=== PATIENT | male | born 1945 | race Caucasian/White ===

== ENCOUNTER 2019-07-02 13:56 | Outpatient (CLI) | payer MEDICARE, SELFPAY ==
--- NOTE | 2019-07-02 14:06 | XR_ITS ---
WS: [id number] RIGHT HIP HISTORY: HIP PAIN RIGHT COMPARISON: None available. Right hip: No acute fracture or dislocation. Moderate narrowing and degenerative changes at the RIGHT hip joint. Sclerosis and irregularity along the acetabulum with osteophyte formation. Mild cortical irregularity along the femoral head. Atherosclerosis femoral artery is moderate. XR/XR hip RT 2-3V wo/w pel* [id number] IMPRESSION: 1. No hip fracture. 2. Moderate RIGHT hip joint osteoarthritis.
== END 2019-07-02 13:57 | disposition home or self-care (01) ==
LOC: RADWPI 14:03
PROVIDERS: Family Provider Family Medicine; PCP Family Medicine; Referring Provider Family Medicine; Visit Provider Family Medicine
DX: M16.11 Unilateral primary osteoarthritis, right hip (principal); M25.551 Pain in right hip
CPT/HCPCS: 73502

== ENCOUNTER → 2019-08-18 09:47 | Outpatient (BNVA) | payer MEDICARE, SELFPAY | PROVIDERS: Family Provider Family Medicine; PCP Family Medicine; Referring Provider Family Medicine; Visit Provider Specialist | DX: M16.11 Unilateral primary osteoarthritis, right hip (principal) | CPT/HCPCS: 73502 ==

== ENCOUNTER → 2021-05-22 14:32 | Outpatient (BNVA) | payer MEDICARE, SELFPAY | PROVIDERS: Family Provider Family Medicine; PCP Family Medicine; Visit Provider Internal Medicine | DX: E11.40 Type 2 diabetes mellitus with diabetic neuropathy, unspecified (principal); E11.22 Type 2 diabetes mellitus with diabetic chronic kidney disease; N18.30 Chronic kidney disease, stage 3 unspecified; E78.5 Hyperlipidemia, unspecified; Z79.84 Long term (current) use of oral hypoglycemic drugs; Z79.4 Long term (current) use of insulin | CPT/HCPCS: 99204 ==

== ENCOUNTER → 2021-08-30 08:07 | Outpatient (BNVA) | payer MEDICARE, SELFPAY | PROVIDERS: Family Provider Family Medicine; PCP Family Medicine; Visit Provider Internal Medicine | DX: E11.40 Type 2 diabetes mellitus with diabetic neuropathy, unspecified (principal); E11.22 Type 2 diabetes mellitus with diabetic chronic kidney disease; N18.30 Chronic kidney disease, stage 3 unspecified; E78.5 Hyperlipidemia, unspecified; Z79.4 Long term (current) use of insulin; Z79.84 Long term (current) use of oral hypoglycemic drugs | CPT/HCPCS: 99214 ==

== ENCOUNTER 2021-08-30 08:59 | Outpatient (CLI) | payer MEDICARE, SELFPAY | END 2021-08-30 09:00 | disposition home or self-care (01) | LOC: LAB 09:03 | PROVIDERS: PCP Family Medicine; Visit Provider Internal Medicine | DX: E11.9 Type 2 diabetes mellitus without complications (principal) | CPT/HCPCS: 83519; 86337; 86341 ==

== ENCOUNTER 2021-12-28 13:34 | Outpatient (CLI) | payer MEDICARE, SELFPAY ==
--- NOTE | 2021-12-28 13:40 | US_ITS ---
WS: [id number] TESTICULAR ULTRASOUND HISTORY: LEFT testicular swelling for one year. COMPARISON: None available. TECHNIQUE: Real-time and color Doppler imaging or utilized to perform a testicular ultrasound. Right testicle: 4.2 cm x 3.1 cm x 2.4 cm. Normal size and echogenicity. No mass or torsion. Normal color Doppler is present throughout. Systolic and diastolic velocities are both present. Small hydrocele with low-level echoes. Increased soft tissue along the RIGHT inguinal canal. No peris talsis. This is probably a fat-containing inguinal hernia. Right epididymis: Epididymis is mildly enlarged and heterogeneous. Epididymal head measures 1.6 x 1.2 x 1.3 cm. There are a few small adjacent spermatoceles. Left testicle: 4.4 cm x 3.1 cm x 2.9 cm. Normal size and echogenicity. No mass or torsion. Normal color Doppler is present throughout. Systolic and diastolic velocities are both present. Moderate size hydrocele with low-level echoes. Left epididymis: Multiple small spermatoceles within the epididymis. The largest spermatocele measure s 7 x 6 mm. US/US scrotum [id number] IMPRESSION: 1. Bilateral hydroceles, LEFT greater than RIGHT. 2. Several small LEFT epididymal spermatoceles. 3. No testicular mass or torsion.
== END 2021-12-28 13:35 | disposition home or self-care (01) ==
LOC: RAD 13:34
PROVIDERS: PCP Family Medicine; Visit Provider Family Medicine
DX: N50.89 Other specified disorders of the male genital organs (principal); N43.3 Hydrocele, unspecified; N43.42 Spermatocele of epididymis, multiple
CPT/HCPCS: 76870

== ENCOUNTER → 2022-01-01 11:41 | Outpatient (BNVA) | payer MEDICARE, SELFPAY | PROVIDERS: PCP Family Medicine; Visit Provider Family Medicine | DX: E13.22 Other specified diabetes mellitus with diabetic chronic kidney disease (principal); E78.5 Hyperlipidemia, unspecified; Z79.01 Long term (current) use of anticoagulants | CPT/HCPCS: 80053; 80061; 83036; 85610 ==

== ENCOUNTER 2022-01-08 15:20 | Observation (INO) | payer MEDICARE, MEDICAID, SELFPAY ==
[2022-01-08 16:15] VITALS: BP 144/69; PULSE 36; RESP 18; TEMP 36.6; O2SAT 97; BMI 33.9
--- NOTE | 2022-01-08 16:19 | ECG_ITS ---
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 Measurements Intervals [place] Rate: 46 P: [place]: QRS: 42 QRSD: 98 T: 109 QT: 458 QTc: 401 Interpretive Statements ATRIAL FIBRILLATION WITH SLOW VENTRICULAR RESPONSE MODERATE ST DEPRESSION [0.05+ mV ST DEPRESSION] ABNORMAL QRS-T ANGLE [QRS-T AXIS DIFFERENCE > 60] No previous ECG available for comparison Electronically Signed On 01-08-2022 20:57:30 CDT by Shonda Camacho M.D. [email or web address] memorial [email or web address] [facility].[place]/store/[id number]
--- NOTE | 2022-01-08 16:44 | XRR_ITS ---
PROCEDURE INFORMATION: Exam: XR Chest Exam date and time: 01/08/2022 4:55 PM Age: 76 years old Clinical indication: Cough and dyspnea; Additional info: Dyspnea/cough TECHNIQUE: Imaging protocol: Radiologic exam of the chest. Views: 1 view. COMPARISON: No relevant prior studies available. FINDINGS: Lungs: Visualized portions of the lungs are clear. Pleural spaces: Unremarkable. No pleural effusion. No pneumothorax. Heart/Mediastinum: Heart is within normal limits of size. Vasculature: Atherosclerotic calcification is seen in the aortic arch. Bones/joints: There are degenerative changes in the thoracic spine and left shoulder. XR/XR chest 1V portable [id number] IMPRESSION: No acute infiltrate.
--- NOTE | 2022-01-08 16:45 | ECG_ITS ---
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 Measurements Intervals [place] Rate: 39 P: [place]: QRS: 41 QRSD: 94 T: 80 QT: 447 QTc: 362 Interpretive Statements ATRIAL FIBRILLATION WITH SLOW VENTRICULAR RESPONSE MODERATE ST DEPRESSION [0.05+ mV ST DEPRESSION] CRITICAL TEST RESULT Compared to ECG 01/08/2022 16:23:16 No significant changes Electronically Signed On 01-08-2022 20:57:42 CDT by Shonda Camacho M.D. [id number]
--- NOTE | 2022-01-08 17:08 | W.ED.GENADLT ---
HPI - General Adult General: Chief complaint: General Medical Stated complaint: low HR Time Seen by Provider: 01/08/22 16:44 Source: patient Mode of arrival: ambulatory Limitations: no limitations History of Present Illness: 76-year-old male presents to the emergency room with complaints of low heart rate. Patient denies any chest pain he does have a history of atrial fibrillation he is on atenolol which she has been taking regularly and on the 12th of this month increase to twice daily from daily. He has noticed increasing shortness of breath with activity since telemetry was increased. Onset (ago): hour(s) Severity: moderate Relieving factors: rest Exacerbating factors: none Associated symptoms: Reports weakness; Deny chest pain, confusion, cough, diaphoresis, decreased appetite, dyspnea, fevers/chills, headache(s), malaise, nausea, rash, palpitations, seizures, short of breath, syncope or vomiting Treatments prior to arrival: none Review of Systems Const: Denies: fever(s), chills, fatigue, malaise or diaphoresis ENMT: Denies: throat pain, ear or mastoid pain, nasal discharge or nasal congestion Card: Denies: chest pain, palpitations or syncope Resp: Denies: dyspnea GI: Denies: abdominal pain, nausea or vomiting : Denies: flank pain, difficulty urinating, dysuria, urinary frequency or urinary urgency Skin/Breast: Denies: rash Neuro: Denies: headache(s) or confusion PFS ED PFSH: Medical History Acute biliary pancreatitis H/O blood clots Hypertension Pseudocyst of pancreas Type 2 diabetes mellitus Surgical History History of cholecystectomy Family History Father Cancer Mother Pneumonia Sister Aneurysm Brother AA (aortic aneurysm) Social History Smoking and tobacco status: never smoked Alcohol intake: never Physical Exam Const: GENERAL APPEARANCE: cooperative and comfortable ORIENTATION/CONSCIOUSNESS: Yes awake, Yes oriented to person, Yes oriented to place and Yes oriented to time HENMT: COMMON NORMALS: normocephalic, atraumatic and hearing grossly normal bilaterally HEAD & SCALP: normocephalic and atraumatic Neck/C-Spine: COMMON NORMALS: no JVD Resp: COMMON NORMALS: normal respiratory effort, No retractions, No use of accessory muscles and clear to auscultation bilaterally AUSCULTATION: clear to auscultation bilaterally Cardio: COMMON NORMALS: no JVD and No murmurs present (Cardio) RATE: bradycardic RHYTHM: abnormal rhythm irregularly irregular GI: COMMON NORMALS: Soft to palpation and No hepatosplenomegaly present AUSCULTATION: Yes normoactive bowel sounds PALPATION: Yes Soft to palpation, No Tenderness to palpation present (GI), No Guarding due to palpation present (GI) and Yes No hepatosplenomegaly present Extremity: COMMON NORMALS: normal to inspection, capillary refill normal, no clubbing, cyanosis or edema, no calf tenderness and no pedal edema Neuro: SENSORIUM/ORIENTATION: Yes oriented to person, Yes oriented to place and Yes oriented to time Skin: COMMON NORMALS: no rashes or lesions noted GENERAL SKIN EXAM: no rashes or lesions noted Course Vital Signs: Vital signs: Vital Signs Temperature 98 F 01/09/22 11:13 Pulse Rate 55 L 01/09/22 11:13 Respiratory Rate 22 H 01/09/22 11:13 Blood Pressure 141/67 01/09/22 11:13 Pulse Oximetry 95 01/09/22 11:13 [facility] - General Adult Medical Decision Making Significant bradycardia will admit discussed with hospitalist orders written. Medical Records I reviewed the patient's medical records. Lab Data I reviewed the patient's lab results. : 01/09/22 04:13 01/09/22 04:13 Radiology Impressions Chest X-Ray 01/08/22 16:44 IMPRESSION: No acute infiltrate. Laboratory Results WBC 10.4 10^3/uL (4.0-10.0) H 01/08/22 17:05 RBC 5.66 10^6/uL (4.1-5.3) H 01/08/22 17:05 Hgb 15.0 g/dL (11.7-16.6) 01/08/22 17:05 Hct 47.9 % (42.0-52.0) 01/08/22 17:05 MCV 84.6 fl (80-94) 01/08/22 17:05 MCH 26.5 pg (28.0-34.0) L 01/08/22 17:05 MCHC 31.3 g/dL (30.0-36.0) 01/08/22 17:05 RDW 18.0 % (12.1-15.1) H 01/08/22 17:05 Plt Count 180 10^3/cmm (130-400) 01/08/22 17:05 MPV 12.5 fL (7.4-10.4) H 01/08/22 17:05 Neut % (Auto) 50.8 % 01/08/22 17:05 Lymph % (Auto) 41.0 % 01/08/22 17:05 [place] % (Auto) 6.9 % 01/08/22 17:05 Eos % (Auto) 0.5 % 01/08/22 17:05 Baso % (Auto) 0.4 % 01/08/22 17:05 Neut # (Auto) 5.27 10^3/uL (1.8-7.7) 01/08/22 17:05 Lymph # (Auto) 4.3 10^3/uL (0.8-4.8) 01/08/22 17:05 [place] # (Auto) 0.7 10^3/uL (0.2-0.9) 01/08/22 17:05 Eos # (Auto) 0.1 10^3/uL (0.0-0.8) 01/08/22 17:05 Baso # (Auto) 0.0 10^3/uL (0.0-0.1) 01/08/22 17:05 Nucleated RBC % (auto) 0 % 01/08/22 17:05 Nucleated RBCs # 0.0 /100WBC 01/08/22 17:05 Sodium 139 mmol/L (136-145) 01/08/22 17:29 Potassium 4.6 mmol/L (3.5-5.1) 01/08/22 17:29 Chloride 105 mmol/L (98-107) 01/08/22 17:29 Carbon Dioxide 22 mmol/L (22-29) 01/08/22 17:29 Anion Gap 16.6 (5-19) 01/08/22 17:29 BUN 27 mg/dL (8-23) H 01/08/22 17:29 Creatinine 1.4 mg/dL (0.7-1.2) H 01/08/22 17:29 GFR Calculation Not Reportable 01/08/22 17:29 Glucose 86 mg/dL (65-115) 01/08/22 17:29 Calculated Osmolality 292 mOsm/kg (285-295) 01/08/22 17:29 Calcium 9.1 mg/dL (8.5-10.5) 01/08/22 17:29 Total Bilirubin 1.1 mg/dL (0.15-1.2) 01/08/22 17:29 AST 11 U/L (0-40) 01/08/22 17:29 ALT 19 U/L (0-41) 01/08/22 17:29 Alkaline Phosphatase 99 IU/L (40-130) 01/08/22 17:29 Troponin T Baseline 22 ng/L (0-15) H 01/08/22 17:29 Total Protein 6.6 g/dL (6.6-8.7) 01/08/22 17:29 Albumin 4.0 g/dL (3.5-5.2) 01/08/22 17:29 Globulin 2.6 g/dL (1.3-4.6) 01/08/22 17:29 TSH 2.12 uIU/mL (0.27-4.20) 01/08/22 17:29 Discharge Plan Discharge Patient Disposition: Admitted As Inpatient Admit Provider: Hoda Angulo Clinical Impression: Atrial fibrillation with slow ventricular response, Type 2 diabetes mellitus, Chronic kidney disease Condition: Stable Discharge Diet: Cardiac Discharge Activity: Increase activity as tolerated Coding Level of Care Code ED Open Winder for Chg Fwd Exam Comprehensive
[2022-01-08 17:20] VITALS: BP 141/98; PULSE 49; RESP 16; O2SAT 95
[2022-01-08 17:20] LABS: Basophils % 0.4 %; Eosinophils # 0.1 10^3/uL (0.0-0.8); Eosinophils % 0.5 %; Hematocrit 47.9 % (42.0-52.0); Lymphocytes # 4.3 10^3/uL (0.8-4.8); Mean Corpuscular HGB Conc 31.3 g/dL (30.0-36.0); Mean Corpuscular Hemoglobin 26.5 pg (28.0-34.0); Mean Corpuscular Volume 84.6 fl (80-94); Mean Platelet Volume 12.5 fL (7.4-10.4); Monocytes # 0.7 10^3/uL (0.2-0.9); Monocytes % 6.9 %; Neutrophils # 5.27 10^3/uL (1.8-7.7); Neutrophils % 50.8 %; Nucleated Red Blood Cells % 0 %; Platelet Count 180 10^3/cmm (130-400); Red Blood Count 5.66 10^6/uL (4.1-5.3); White Blood Count 10.4 10^3/uL (4.0-10.0)
--- NOTE | 2022-01-08 18:05 | P.HP_ITS ---
Providers/Chief Complaint Primary Care Provider: Alfredito Chandra DO Chief Complaint: low HR History of Present Illness Veronique Cavazos is a 76 year old male who has history of pancreatitis, diabetes, hypertension, presented to hospital with chief complaint of dizziness, shortness of breath and fatigue. Patient is vaccinated for COVID-19. Patient is stating that he was in his usual state of health until 48 hours ago, 48 hours ago he started experiencing dizziness she describing as lightheadedness, he did not use any chest pain, fever, diarrhea. No recent viral infection. He has been having headaches on and off. No previous diagnosis of A. fib. He takes Coumadin for his DVT. Recently Dr. Anthony increase his atenolol dose to twice a day he has been taking Tylenol twice a day for last 7 days. Because of his symptoms he dec ided to come to the hospital for further evaluation. He never experienced confusion however endorsing fatigue and lethargy. Diagnostic work-up in the ER revealed sinus pauses, A. fib with slow ventricular response his heart rate fluctuated between 45-60, his blood pressure is 154/80 mmHg, at baseline systolic blood pressure remains in 150s and diastolic runs around 60s millimeters mercury. He has never experienced bradycardia before. No recent falls. He lives alone and consider himself fairly active for his age. No recent tick bites. Troponin 22, TSH is unremarkable, Chronic kidney disease at baseline Review of Systems Const: Reports: chills and body aches Eyes: Denies: change in vision ENMT: Denies: throat pain Card: Reports: dyspnea on exertion Resp: Reports: dyspnea GI: Denies: abdominal pain : Denies: flank pain Musc: Denies: neck pain Skin/Breast: Denies: rash Neuro: Denies: headache(s) Psych: Denies: anxiety Endo: Denies: polyuria [place]/Lymph: Denies: easy bruising All/Imm: Denies: urticaria Medications/Allergies Home Medications Medication Instructions Recorded Confirmed Last Taken Type amlodipine 10 mg tablet 10 mg PO DAILY 08/18/19 01/08/22 Unknown History atenolol 50 mg tablet 50 mg PO BID 08/18/19 01/08/22 01/08/22 History finasteride 5 mg tablet 5 mg PO DAILY 08/18/19 01/08/22 01/08/22 History losartan 100 mg tablet 100 mg PO DAILY 08/18/19 01/08/22 01/08/22 History warfarin 4 mg tablet See Rx Instructions .ROUTE .COMPLEX 08/18/19 01/08/22 01/08/22 History atorvastatin 20 mg tablet 20 mg PO BEDTIME 05/22/21 01/08/22 01/07/22 History cholecalciferol (vitamin D3) 25 25 mcg PO DAILY 05/22/21 01/08/22 01/08/22 History mcg (1,000 unit) capsule metformin 1,000 mg tablet 500 mg PO BID tab 05/22/21 01/08/22 01/08/22 History pen needle, diabetic 32 gauge x #100 ea 05/22/21 01/08/22 Unknown Rx (BD Samara 2nd Gen Pen Needle) vitamin B12 500 mcg-folic acid 400 1 tab PO DAILY 05/22/21 01/08/22 01/08/22 History mcg tablet blood-glucose meter,continuous #1 ea 08/30/21 01/08/22 Unknown Rx (Dexcom G6 Inside Sales Person) blood-glucose sensor (Dexcom G6 #3 ea 08/30/21 01/08/22 Unknown Rx Sensor) blood-glucose transmitter (Dexcom #1 ea 08/30/21 01/08/22 Unknown Rx G6 Transmitter) clonidine HCl 0.1 mg tablet 0.05 mg PO BID 01/08/22 01/08/22 Unknown History hydrocodone 10 mg-acetaminophen 1 tab PO TID PRN 01/08/22 01/08/22 Unknown History 325 mg tablet insulin human U-100 NPH-regulr 40 unit SUBCUT BID 01/08/22 01/08/22 01/08/22 History 70-30 mix 100 unit/mL subcutaneous susp (Novolin 70/30 U-100 Insulin) pregabalin 75 mg capsule 75 mg PO BID 01/08/22 01/08/22 01/08/22 History sertraline 100 mg tablet 100 mg PO DAILY 01/08/22 01/08/22 01/08/22 History sildenafil 25 mg tablet 25 mg PO DAILY PRN 01/08/22 01/08/22 Unknown History Allergies Allergy/AdvReac Type Severity Reaction Status Date / Time No Known Allergies Allergy Verified 01/08/22 17:30 PFSH Acute PFSH: Medical History Acute biliary pancreatitis H/O blood clots Hypertension Pseudocyst of pancreas Type 2 diabetes mellitus Surgical History History of cholecystectomy Family History Father Cancer Mother Pneumonia Sister Aneurysm Brother AA (aortic aneurysm) Social History Smoking and tobacco status: never smoked Alcohol intake: never Vitals/I&O/Wt Last Vital Signs Temp 97.9 F 01/08/22 16:15 Pulse 49 L 01/08/22 17:20 Resp 16 01/08/22 17:20 BP 141/98 01/08/22 17:20 Pulse Ox 95 01/08/22 17:20 Weight last 48 hrs Weight 95.254 kg Physical Exam Narrative: Very pleasant cooperative elderly male Currently heart rate is in 55-60 range Blood pressure 154/80 mmHg Patient is awake and alert No signs of confusion Family at the bedside Patient does not look fluid overloaded S1, S2 is variable Am not able appreciate any murmur Abdomen distended, soft, nontender, bowel sound present No extremity without edema No signs of hypothyroidism No signs of confusion He is awake and alert Nonfocal neuro exam Data : 01/08/22 17:05 01/08/22 17:29 A&P Assessment and plan (1) Type 2 diabetes mellitus: Status: Acute (2) HLD (hyperlipidemia): Status: Acute (3) Atrial fibrillation with slow ventricular response: Status: Acute (4) Chronic kidney disease: Status: Acute Plan Slow ventricular response with A. fib New onset Patient is symptomatic with presyncope, lightheadedness Shortness of breath Recently his atenolol dose was increased to twice a day which I would hold for now Monitor with telemetry on CSU Trend troponin and EKG We will keep him n.p.o. after midnight in case he would require surgical intervention in the morning such as pacemaker Will consult cardiology in the morning Check echo His TSH is normal, potassium is 4.6 Check magnesium level No recent tick bites No previous history of amyloidosis or lupus N.p.o. after midnight DVT prophylaxis on hold in case he would require any surgical intervention He is full code I have allowed his family to stay with him overnight Attestations Medical Necessity Statement*: Patient is being monitored for A. 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
[2022-01-08 18:08] LABS: Troponin(5th) Baseline 22 ng/L (0-15)
[2022-01-08 18:24] LABS: Alanine Aminotransferase 19 U/L (0-41); Alkaline Phosphatase 99 IU/L (40-130); Anion Gap 16.6 (5-19); Aspartate Amino Transferase 11 U/L (0-40); Blood Urea Nitrogen 27 mg/dL (8-23); Calcium 9.1 mg/dL (8.5-10.5); Carbon Dioxide 22 mmol/L (22-29); Chloride 105 mmol/L (98-107); Globulin 2.6 g/dL (1.3-4.6); Glucose 86 mg/dL (65-115); Osmolality Calculated 292 mOsm/kg (285-295); Potassium 4.6 mmol/L (3.5-5.1); Sodium 139 mmol/L (136-145); Thyroid Stimulating Hormone 2.12 uIU/mL (0.27-4.20); Total Bilirubin 1.1 mg/dL (0.15-1.2); Total Protein 6.6 g/dL (6.6-8.7)
[2022-01-08 18:29] LABS: Creatinine Clr Calc Pharmacy 46.9807
--- NOTE | 2022-01-08 18:45 | ECG_ITS ---
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 Measurements Intervals [place] Rate: 44 P: [place]: QRS: 38 QRSD: 87 T: 76 QT: 429 QTc: 368 Interpretive Statements ATRIAL FIBRILLATION WITH SLOW VENTRICULAR RESPONSE NONSPECIFIC ST & T-WAVE ABNORMALITY ABNORMAL RHYTHM ECG Compared to ECG 01/08/2022 17:08:31 T-wave abnormality now present ST (T wave) deviation no longer present Electronically Signed On 01-08-2022 21:07:53 CDT by Shonda Camacho M.D. [id number]
--- NOTE | 2022-01-08 19:09 | USCV_ITS ---
Veronique Cavazos Age: 76 Gender: M : 1945 Exam Date: 01/08/2022 19:26 Ordering Phys: Hoda Angulo MD Technologist: OPAL Exam Location[place] [facility] [place] Indication: atrial fibrillation, dizziness, no shortness of breath, No hx cardiac intervention per patient. BP: 141 / 98 HR: 57 Rhythm: Atrial fibrillation Technical Quality: Adequate MEASUREMENTS (Male / Female) Normal Values 2D ECHO LV Diastolic Diameter PLAX 4.6 cm 4.2 - 5.9 / 3.9 - 5.3 cm LV Systolic Diameter PLAX 3.1 cm IVS Diastolic Thickness 1.7 cm 0.6 - 1.0 / 0.6 - 0.9 cm IVS Systolic Thickness 2.0 cm LVPW Diastolic Thickness 1.3 cm 0.6 - 1.0 / 0.6 - 0.9 cm LVPW Systolic Thickness 1.9 cm LVOT Diameter 2.0 cm LV Ejection Fraction 2D Teich 62.3 % LV Ejection Fraction MOD 2C 54.9 % LV Ejection Fraction 2C AL 57.7 % LA Diameter 4.3 cm LA Width 3.7 cm LA Height 6.1 cm RA Width 2.7 cm RA Height 4.6 cm Aorta at Sinotubular Diameter 3.7 cm IVC Diameter 1.5 cm M-MODE Aortic Annulus Diameter 4.2 cm LA Ao Ratio MM 1.0 MV E Point Septal Separation 0.6 cm DOPPLER AV Peak Velocity 254.0 cm/s LVOT Peak Velocity 78.0 cm/s AV Area Cont Eq vti 1.0 cm squared AV Area Cont Eq pk 1.0 cm squared MV Peak Velocity 119.0 cm/s MV Area PHT 5.0 cm squared Mitral E to A Ratio 2.5 MV E' Velocity 65.8 cm/s Mitral E to MV E' Ratio 11.7 Mitral E to LV E' Lateral Ratio 10.1 Mitral E to LV E' Septal Ratio 13.9 TR Peak Velocity 217.7 cm/s TR Peak Gradient 19.0 mmHg TV Peak E Velocity 57.0 cm/s Right Atrial Pressure 10.0 mmHg Pulmonary Artery Systolic Pressu 29.0 mmHg PV Peak Velocity 76.0 cm/s RV Acceleration Time 0.1 s RV Ejection Time 0.5 s RV AcT/ET 0.2 FINDINGS Left Ventricle Normal left ventricular size. LV systolic function is normal with EF of 55-60%. No regional wall motion abnormalities. Diastolic function is indeterminate because of atrial fibrillation Right Ventricle The right ventricle is normal in size and function. Right Atrium The right atrium is normal in size. Left Atrium The left atrium is dilated Mitral Valve Structurally normal mitral valve without significant stenosis or prolapse. There is mild mitral regurgitation. Aortic Valve Aortic valve is thickened. Moderate aortic stenosis is seen with aortic valve area of 1.1 cm squared and mean gradient across aortic valve 12.4 mmHg. There is mild aortic regurgitation. Tricuspid Valve Structurally normal tricuspid valve without significant stenosis. Trace tricuspid regurgitation. Pulmonary artery systolic pressure is normal. Pulmonic Valve Not well visualized. Pericardium Normal pericardium without effusion. Aorta Normal ascending aorta dimension. IVC CONCLUSIONS LV systolic function is normal with EF 55 to 60%. Diastolic function is indeterminate because of atrial fibrillation. Left atrium is dilated. Mild mitral regurgitation. Aortic valve is thickened and calcified. Moderate aortic stenosis is seen with aortic valve area of 1.1 cm squared and mean gradient across aortic valve 12.4 mmHg. Mild aortic regurgitation. Trace tricuspid regurgitation. Compared to prior echocardiogram from 2019, aortic stenosis has now progressed to moderate . Elías Gutierrez MD (Electronically Signed) Final Date: 09 January 2022 11:39 S
--- NOTE | 2022-01-08 19:25 | PC.NURSE ---
received report. 76 yo male presents with bradycardia. He states his PCP increased his atenolol recently and noticed yesterday that his heart rate started being slow, below 50. Today his rate has been from 39-60. he states he feels weak and has some dizziness. He denies CP. He is admitted. Cardiology to see in the a.m. He is NPO at midnight. A/O x 4, even non labored respirations. No chest pain. abdomen soft non tender. distal pulses 2+.
[2022-01-08 19:31] VITALS: BP 159/78; PULSE 55; RESP 21; O2SAT 93
[2022-01-08 22:49] VITALS: BP 143/60; PULSE 40; RESP 20; O2SAT 93
[2022-01-09] VITALS (30 sets, daily range): BP systolic 123–168; BP diastolic 56–97; PULSE 44–73; RESP 8–25; TEMP 36.3–37.2; O2SAT 88–95; BMI 33.9
[2022-01-09 00:23] LABS: Troponin 5 6HR 18.98 ng/L (0-15)
[2022-01-09 00:27] LABS: Troponin 5 6HR Delta -3.02 ng/L (0-12)
[2022-01-09] MEDS: atorvastatin 40 mg Tablet 20 MG PO ×2 (01:34→20:31)
[2022-01-09 04:41] LABS: Basophils % 0.4 %; Eosinophils # 0.1 10^3/uL (0.0-0.8); Eosinophils % 0.9 %; Hematocrit 46.1 % (42.0-52.0); Hemoglobin 14.3 g/dL (11.7-16.6); Lymphocytes # 4.1 10^3/uL (0.8-4.8); Lymphocytes % 45.2 %; Mean Corpuscular Hemoglobin 26.4 pg (28.0-34.0); Mean Corpuscular Volume 85.2 fl (80-94); Mean Platelet Volume 12.4 fL (7.4-10.4); Monocytes # 0.5 10^3/uL (0.2-0.9); Monocytes % 5.9 %; Neutrophils # 4.25 10^3/uL (1.8-7.7); Neutrophils % 47.4 %; Nucleated Red Blood Cells % 0 %; Platelet Count 152 10^3/cmm (130-400); Red Blood Count 5.41 10^6/uL (4.1-5.3); Red Cell Distribution Width 14.9 % (12.1-15.1)
[2022-01-09 04:51] LABS: INR 1.95 (0.8-1.2)
[2022-01-09 05:00] LABS: Anion Gap 14.5 (5-19); Blood Urea Nitrogen 27 mg/dL (8-23); Calcium 8.9 mg/dL (8.5-10.5); Carbon Dioxide 24 mmol/L (22-29); Chloride 106 mmol/L (98-107); Glucose 156 mg/dL (65-115); Osmolality Calculated 298 mOsm/kg (285-295); Potassium 4.5 mmol/L (3.5-5.1); Sodium 140 mmol/L (136-145)
[2022-01-09 06:32] LABS: Glucose Point of Care 125 mg/dL (70-110)
--- NOTE | 2022-01-09 06:40 | P.DS_ITS ---
Discharge Providers Date of Admission: 01/08/22 18:04 Date of Discharge: January 09, 2022 Attending Provider at Admission: Hoda Angulo MD Attending Provider at Discharge: Hoda Angulo MD Primary Care Provider: Alfredito Chandra DO Diagnoses at Discharge Discharge Diagnosis (1) Type 2 diabetes mellitus: Status: Acute (2) HLD (hyperlipidemia): Status: Acute (3) Atrial fibrillation with slow ventricular response: Status: Acute (4) Chronic kidney disease: Status: Acute Reason for Visit Reason for Visit: low HR Hospital Course Hospital Course Pleasant 76-year-old male who was admitted for management evaluation of presyncope, shortness of breath. In the ER he was diagnosed with A. fib slow ventricular response, recently his atenolol dose was increased to 50 mg twice a day by his PCP. No active chest pain, troponin is trending down. TSH normal. No electrolyte imbalance. Patient was hemodynamically stable. In fact he janine ined hypertensive throughout his hospitalization. He does carry history of chronic kidney disease. Cardiology was consulted who recommended discharge on event monitor. No indication for pacemaker at this point his bradycardia is associated with use of AV boy blocking agents. He will follow-up with cardiology within 2 weeks. Physical Exam 2 Narrative: Pleasant cooperative EOMI, PERRLA Nonfocal neuro exam Variable S1-S2 Abdomen soft Distended abdomen nontender No signs of edema He is awake and alert and pleasant Discharge Data Studies Completed and Pending Completed Studies During Hospitalization Category Date Time Status XR chest 1V portable [id number] Stat Exams 01/08/22 16:44 Completed Pending at discharge Category Date Time Status CV. echo complete* [id number] Stat Ultrasound 01/08/22 19:09 Taken Radiology Impressions Chest X-Ray 01/08/22 16:44 IMPRESSION: No acute infiltrate. Laboratory Results WBC 9.0 10^3/uL (4.0-10.0) 01/09/22 04:13 RBC 5.41 10^6/uL (4.1-5.3) H 01/09/22 04:13 Hgb 14.3 g/dL (11.7-16.6) 01/09/22 04:13 Hct 46.1 % (42.0-52.0) 01/09/22 04:13 MCV 85.2 fl (80-94) 01/09/22 04:13 MCH 26.4 pg (28.0-34.0) L 01/09/22 04:13 MCHC 31.0 g/dL (30.0-36.0) 01/09/22 04:13 RDW 14.9 % (12.1-15.1) 01/09/22 04:13 Plt Count 152 10^3/cmm (130-400) 01/09/22 04:13 MPV 12.4 fL (7.4-10.4) H 01/09/22 04:13 Neut % (Auto) 47.4 % 01/09/22 04:13 Lymph % (Auto) 45.2 % 01/09/22 04:13 [place] % (Auto) 5.9 % 01/09/22 04:13 Eos % (Auto) 0.9 % 01/09/22 04:13 Baso % (Auto) 0.4 % 01/09/22 04:13 Neut # (Auto) 4.25 10^3/uL (1.8-7.7) 01/09/22 04:13 Lymph # (Auto) 4.1 10^3/uL (0.8-4.8) 01/09/22 04:13 [place] # (Auto) 0.5 10^3/uL (0.2-0.9) 01/09/22 04:13 Eos # (Auto) 0.1 10^3/uL (0.0-0.8) 01/09/22 04:13 Baso # (Auto) 0.0 10^3/uL (0.0-0.1) 01/09/22 04:13 Nucleated RBC % (auto) 0 % 01/09/22 04:13 Nucleated RBCs # 0.0 /100WBC 01/09/22 04:13 PT 22.50 SECONDS (12.1-14.9) H 01/09/22 04:13 INR 1.95 (0.8-1.2) H 01/09/22 04:13 Sodium 140 mmol/L (136-145) 01/09/22 04:13 Potassium 4.5 mmol/L (3.5-5.1) 01/09/22 04:13 Chloride 106 mmol/L (98-107) 01/09/22 04:13 Carbon Dioxide 24 mmol/L (22-29) 01/09/22 04:13 Anion Gap 14.5 (5-19) 01/09/22 04:13 BUN 27 mg/dL (8-23) H 01/09/22 04:13 Creatinine 1.3 mg/dL (0.7-1.2) H 01/09/22 04:13 GFR Calculation Not Reportable 01/09/22 04:13 Glucose 156 mg/dL (65-115) H 01/09/22 04:13 POC Glucose 125 mg/dL (70-110) H 01/09/22 06:06 Calculated Osmolality 298 mOsm/kg (285-295) H 01/09/22 04:13 Calcium 8.9 mg/dL (8.5-10.5) 01/09/22 04:13 Total Bilirubin 1.1 mg/dL (0.15-1.2) 01/08/22 17:29 AST 11 U/L (0-40) 01/08/22 17:29 ALT 19 U/L (0-41) 01/08/22 17:29 Alkaline Phosphatase 99 IU/L (40-130) 01/08/22 17:29 Troponin T Baseline 22 ng/L (0-15) H 01/08/22 17:29 Troponin T 120 Minute 19.30 ng/L (0-15) H 01/08/22 19:20 Delta Troponin T -2.70 ABS# (0-10) L 01/08/22 19:20 Troponin T Hi Sens 6Hr 18.98 ng/L (0-15) H 01/08/22 23:55 Troponin T Hi Sens 6Hr Delta -3.02 ng/L (0-12) L 01/08/22 23:55 Total Protein 6.6 g/dL (6.6-8.7) 01/08/22 17:29 Albumin 4.0 g/dL (3.5-5.2) 01/08/22 17:29 Globulin 2.6 g/dL (1.3-4.6) 01/08/22 17:29 TSH 2.12 uIU/mL (0.27-4.20) 01/08/22 17:29 Vitals Last Vital Signs Temp 97.8 F 01/09/22 04:00 Pulse 67 01/09/22 05:33 Resp 17 01/09/22 04:00 BP 158/80 01/09/22 04:00 Pulse Ox 95 01/09/22 04:00 Discharge Plan Discharge Patient Disposition: Home Condition: Stable Prescriptions: No Action atorvastatin 20 mg tablet 20 mg PO BEDTIME 0RF vitamin B39-dahrw acid 500-400 mcg tablet 1 tab PO DAILY 0RF Rx Instructions: administer with a meal cholecalciferol (vitamin D3) 25 mcg (1,000 unit) capsule 25 mcg PO DAILY 0RF (DME) pen needle, diabetic [BD Samara 2nd Gen Pen Needle] 32 gauge x 5/32 needle See Rx Instructions .Route Qty: 100 3RF Rx Instructions: As directed (DME) Dexcom G6 Assistant Tennis Coach Misc See Rx Instructions .Route Qty: 1 0RF Rx Instructions: Check BS 4 -6 times a day. (DME) Dexcom G6 Sensor Device See Rx Instructions .Route Qty: 3 3RF Rx Instructions: Change every 10 days. (DME) Dexcom G6 Transmitter Device See Rx Instructions .Route Qty: 1 3RF Rx Instructions: Change every 90 days. warfarin 4 mg tablet See Rx Instructions .ROUTE .COMPLEX 0RF Rx Instructions: 4 mg orally ON [id number] AND HALF A TAB ON FRI-FRI-FRI amlodipine 10 mg tablet 10 mg PO DAILY 0RF losartan 100 mg tablet 100 mg PO DAILY 0RF atenolol 50 mg tablet 50 mg PO BID 0RF finasteride 5 mg tablet 5 mg PO DAILY 0RF metformin 1,000 mg tablet 500 mg PO BID 0RF clonidine HCl 0.1 mg Tablet 0.05 mg PO BID 0RF sertraline 100 mg Tablet 100 mg PO DAILY 0RF pregabalin 75 mg Capsule 75 mg PO BID 0RF Novolin 70/30 U-100 Insulin 100 unit/mL (70-30) Suspension 40 unit SUBCUT BID 0RF hydrocodone-acetaminophen 10-325 mg tablet 1 tab PO TID PRN (Reason: Pain) 0RF sildenafil 25 mg Tablet 25 mg PO DAILY PRN (Reason: Erectile Dysfunction) 0RF Rx Instructions: administer 30 minutes to 4 hours before activity Referrals: Alfredito Chandra DO [Primary Care Provider] - Patient Instructions: Opioid Safety Coding Level of Care Code Acute Chg FW DC note Diagnoses Type 2 diabetes mellitus E11.9 HLD (hyperlipidemia) E78.5 Atrial fibrillation with slow ventricular response I48.91 Chronic kidney disease N18.9
[2022-01-09] MEDS: finasteride 5 mg Tablet PO (08:37)
[2022-01-09] MEDS: losartan 50 mg Tablet 25 MG PO (08:37)
[2022-01-09] MEDS: amlodipine 10 mg Tablet PO (08:38)
--- NOTE | 2022-01-09 09:07 | P.CONIM_ITS ---
Providers/Reason For Consult Consulting Physician/Specialty*: Elías Gutierrez MD/ Cardiology Reason for Consult*: Symtpomatic bradycardia Attending Physician: Hoda Angulo MD Primary Care Provider: Alfredito Chandra DO History of Present Illness History of Present Illness Veronique Cavazos is a 76 year old male with past medical history of diabetes, hypertension who presented to the hospital with complaints of dizziness and shortness of breath. He was also fatigued. Patient does not have a prior history of for atrial fibrillation. He was on anticoagulation with Coumadin for DVT history. His atenolol dose was recently increased by PCP office. In the hospital he was found to be in atrial fibrillation with slow heart rate. With the bradycardia he did feel dizzy. EKG does not show significant ST changes. No significant troponin elevation. Echocardiogram shows normal LV systolic function and moderate aortic stenosis. Review of Systems Const: Reports: chills and body aches Eyes: Denies: change in vision ENMT: Denies: throat pain Card: Reports: dyspnea on exertion Resp: Reports: dyspnea GI: Denies: abdominal pain : Denies: flank pain Musc: Denies: neck pain Skin/Breast: Denies: rash Neuro: Denies: headache(s) Psych: Denies: anxiety Endo: Denies: polyuria [place]/Lymph: Denies: easy bruising All/Imm: Denies: urticaria Medications/Allergies Home Medications Medication Instructions Recorded Confirmed Last Taken Type finasteride 5 mg tablet 5 mg PO DAILY 08/18/19 01/08/22 01/08/22 History warfarin 4 mg tablet See Rx Instructions .ROUTE .COMPLEX 08/18/19 01/08/22 01/08/22 History atorvastatin 20 mg tablet 20 mg PO BEDTIME 05/22/21 01/08/22 01/07/22 History cholecalciferol (vitamin D3) 25 25 mcg PO DAILY 05/22/21 01/08/22 01/08/22 History mcg (1,000 unit) capsule pen needle, diabetic 32 gauge x #100 ea 05/22/21 01/08/22 Unknown Rx (BD Samara 2nd Gen Pen Needle) vitamin B12 500 mcg-folic acid 400 1 tab PO DAILY 05/22/21 01/08/22 01/08/22 History mcg tablet blood-glucose meter,continuous #1 ea 08/30/21 01/08/22 Unknown Rx (Dexcom G6 [employer] Writer) blood-glucose sensor (Dexcom G6 #3 ea 08/30/21 01/08/22 Unknown Rx Sensor) blood-glucose transmitter (Dexcom #1 ea 08/30/21 01/08/22 Unknown Rx G6 Transmitter) hydrocodone 10 mg-acetaminophen 1 tab PO TID PRN 01/08/22 01/08/22 Unknown History 325 mg tablet insulin human U-100 NPH-regulr 40 unit SUBCUT BID 01/08/22 01/08/22 01/08/22 History 70-30 mix 100 unit/mL subcutaneous susp (Novolin 70/30 U-100 Insulin) pregabalin 75 mg capsule 75 mg PO BID 01/08/22 01/08/22 01/08/22 History sertraline 100 mg tablet 100 mg PO DAILY 01/08/22 01/08/22 01/08/22 History sildenafil 25 mg tablet 25 mg PO DAILY PRN 01/08/22 01/08/22 Unknown History amlodipine 10 mg tablet 10 mg PO DAILY #90 tab 01/09/22 Unknown Rx hydralazine 25 mg tablet 25 mg PO TID #90 tab 01/09/22 Unknown Rx losartan 100 mg tablet 100 mg PO DAILY #60 tab 01/09/22 Unknown Rx Allergies Allergy/AdvReac Type Severity Reaction Status Date / Time No Known Allergies Allergy Verified 01/08/22 17:30 Current Medications Generic Name Dose Route Start Last Admin Trade Name Freq PRN Reason Stop Dose Admin Amlodipine Besylate 10 mg 01/09/22 09:00 01/09/22 08:38 Amlodipine 10 Mg Tablet PO 10 mg DAILY JERRELL Administration Atorvastatin Calcium 20 mg 01/09/22 00:12 01/09/22 01:34 Atorvastatin 40 Mg Tablet PO 20 mg BEDTIME JERRELL Administration Finasteride 5 mg 01/09/22 09:00 01/09/22 08:37 Finasteride 5 Mg Tablet PO 5 mg DAILY JERRELL Administration Losartan Potassium 25 mg 01/09/22 09:00 01/09/22 08:37 Losartan 50 Mg Tablet PO 25 mg DAILY JERRELL Administration PFSH Acute PFSH: Medical History Acute biliary pancreatitis H/O blood clots Hypertension Pseudocyst of pancreas Type 2 diabetes mellitus Surgical History History of cholecystectomy Family History Father Cancer Mother Pneumonia Sister Aneurysm Brother AA (aortic aneurysm) Social History Smoking and tobacco status: never smoked Alcohol intake: never Vitals/I&O/Wt Last Vital Signs Temp 98 F 01/09/22 07:08 Pulse 68 01/09/22 07:08 Resp 15 01/09/22 07:08 BP 168/97 01/09/22 08:37 Pulse Ox 93 01/09/22 07:08 01/08/22 01/09/22 01/09/22 22:59 06:59 14:59 Output Total 325 / 325 Balance -325 / -325 Weight last 48 hrs Weight 210 lb Weight 210 lb Physical Exam Narrative: GENERAL: Patient is alert, awake and oriented x3. [] NECK: No jugular vein distension. [] HEENT: No cyanosis. No icterus. No pallor. [] HEART: Irregularly irregular, S1 and S2. Has grade 2/6 systolic murmur LUNGS: Clear to auscultate bilaterally. [] ABDOMEN: Soft, nontender and nondistended. Positive bowel sounds. No guarding, rebound or tenderness. [] CENTRAL NERVOUS SYSTEM: Grossly nonfocal. [] EXTREMITIES: Lower extremities with 1+ edema bilaterally. Pulses palpable in the lower extremities, both dorsalis pedis and posterior tibial. [] Data : 01/09/22 04:13 01/10/22 04:52 A&P Assessment and plan (1) Bradycardia: Status: Acute (2) Atrial fibrillation with slow ventricular response: Status: Acute (3) Type 2 diabetes mellitus: Status: Acute (4) HLD (hyperlipidemia): Status: Acute Plan Patient has presented with atrial fibrillation with slow heart rate. He is already on anticoagulation with Coumadin. Continue. Hold all rate controlling medications including atenolol. This dose was recently increased. We will watch overnight how he does. If his heart rates improved and no significant pauses and symptoms by tomorrow, he can be discharged home with an event monitor. Uptitrate rest of antihypertensive medications as his blood pressure is quite high. Echocardiogram shows moderate aortic stenosis. This will need to be followed as outpatient. Thank you for involving us with care of this patient. We will continue to follow. Please call with questions Consult Attestations Medical Necessity Statement: Care expected to cross 2 midnights. Coding Level of Care Code Acute [place] Planning Manager for [facility] Fwd Diagnoses Bradycardia R00.1 Atrial fibrillation with slow ventricular response I48.91 Type 2 diabetes mellitus E11.9 HLD (hyperlipidemia) E78.5
--- NOTE | 2022-01-09 10:43 | P.PN_ITS ---
Subjective Subjective: Pleasant 76-year-old male who was admitted for management evaluation of presyncope, shortness of breath. In the ER he was diagnosed with A. fib slow ventricular response, recently his atenolol dose was increased to 50 mg twice a day by his PCP. No active chest pain, troponin is trending down. T SH normal. No electrolyte imbalance. Patient was hemodynamically stable. In fact he remained hypertensive throughout his hospitalization. He does carry history of chronic kidney disease. Cardiology was consulted who recommended discharge on event monitor. No indication for pacemaker at this point his bradycardia is associated with use of AV boy blocking agents. Clonidine, atenolol discontinued he started experiencing on ambulation patient was made to observe him 1 more day bradycardia Vitals/I&O/Wt Last Vital Signs Temp 98 F 01/09/22 07:08 Pulse 68 01/09/22 07:08 Resp 15 01/09/22 07:08 BP 168/97 01/09/22 08:37 Pulse Ox 93 01/09/22 07:08 01/08/22 01/09/22 01/09/22 22:59 06:59 14:59 Intake Total 480 / 480 Output Total 325 / 325 900 / 900 Balance -325 / -325 -420 / -420 Weight last 48 hrs Weight 95.254 kg Weight 95.254 kg Physical Exam Narrative: Patient is asymptomatic and heart rate decreased to 30s A. fib slow ventricular sponsor euvolemic Family at the bedside Very pleasant and cooperative Saturating well on room air Patient was asymptomatic Nonfocal neuro exam Abdomen soft Data : 01/09/22 04:13 01/09/22 04:13 A&P Assessment and plan (1) Bradycardia: Status: Acute (2) Chronic kidney disease: Status: Acute (3) Atrial fibrillation with slow ventricular response: Status: Acute (4) Afib: Status: Acute (5) Type 2 diabetes mellitus: Status: Acute Plan Initially there was plan to discharge him today however his heart rate dipped down to 30s and 40s, he remained asymptomatic, I will transfer him to ICU, put pacer pads A. fib with slow ventricular I will keep him n.p.o. in case he would require any intervention in the morning Dr. Wyman is aware We had family meeting in the room in presence of Dr. Wyman Decision is made to discontinue clonidine and atenolol along metformin I will hold his Coumadin for now in anticipation of any pacemaker evaluation tomorrow morning INR 1.9 Chronic kidney disease without acute exacerbation Patient is full code I will transfer him to ICU, put pacer pads, Dr. Gutierrez is notified Patient is suffering from frequent sinus pauses Attestations Medical Necessity Statement*: Transferred to ICU Time Spent in Patient Care: 45 Coding Level of Care Code Acute Software Licensing Specialist for [facility] Fwd Diagnoses Bradycardia R00.1 Chronic kidney disease N18.9 Atrial fibrillation with slow ventricular response I48.91 Afib I48.91 Type 2 diabetes mellitus E11.9
--- NOTE | 2022-01-09 11:12 | PC.NURSE ---
Dr. Angulo notified at 1020 that pt has become bradycardic in the 30's. symptomatic with diziness and light headed. strip sent for his visualization. at 1056 pt had a 3 second pause followed by bradycardia in the 30's. again pt does not feel well during these episodes. strip sent to dr Angulo. He requested pacer pads be placed on patient, and orders paced for pt to transfer to icu. waiting for a bed. pts bp stable, currently afib in the 30-40's. daughter at bedside and monitoring patient closely. pacer pads on
--- NOTE | 2022-01-09 12:27 | ECG_ITS ---
[facility] Test Date: 2022-01-09 Pat Name: Veronique Cavazos Department: Room: 275 Gender: Male Pit Supervisor: : 1945 Requested By: Hoda Angulo Order Number: [id number] Lesly MD: Elías Gutierrez M.D. Measurements Intervals [place] Rate: 65 P: AR: QRS: 69 QRSD: 89 T: 47 QT: 405 QTc: 422 Interpretive Statements ATRIAL FIBRILLATION MODERATE ST DEPRESSION [0.05+ mV ST DEPRESSION] Compared to ECG 01/08/2022 18:44:16 ST (T wave) deviation now present T-wave abnormality no longer present Electronically Signed On 01-09-2022 16:28:23 CDT by Elías Gutierrez M.D. [id number]
[2022-01-09] MEDS: ondansetron 2 mg/ML SDV 2 mL 4 MG IVP (12:49)
[2022-01-09 14:44] LABS: Glucose Point of Care 222 mg/dL (70-110)
--- NOTE | 2022-01-09 14:51 | PC.NURSE ---
report given to candy. pt transported on tele with all belongings. Dr. Angulo notified of transfer. pt having brief episodes of desaturation. Dr Angulo notified of this also.
[2022-01-09] MEDS: insulin lispro 100 unit/1 mL SUBCUT ×2 (15:44→18:32)
[2022-01-09] MEDS: hyDRALAzine 25 mg Tablet PO ×2 (15:44→20:31)
--- NOTE | 2022-01-09 16:30 | PC.NURSE ---
[facility]
[2022-01-09 16:48] LABS: Glucose Point of Care 337 mg/dL (70-110)
[2022-01-09 17:20] LABS: Add Urine Microscopic? NO; Charge for UA Resulting for Rev
[2022-01-09 17:36] LABS: Bilirubin Urine Neg (Negative); Blood Urine Neg (Negative); Glucose Urine UA 4+ (Normal); Ketones Urine Negative (Negative); Leukocyte Esterase Urine Negative (Negative); Nitrate Urine Negative (Negative); Protein Urine Neg (Negative); Specific Gravity, Urine 1.015 (1.005-1.030); Urine Appearance Clear (CLEAR); Urine Color Yellow (Yellow); Urobilinogen Urine Norm (Negative); pH Urine 5 (5-7)
[2022-01-09 18:04] LABS: Glucose Point of Care 159 mg/dL (70-110)
--- NOTE | 2022-01-09 18:25 | PC.NURSE ---
Orthostatic VS Laying-BP 135/69, HR 68, O2 90, RR 17 Sitting-BP 152/83, HR 67, O2 89, RR 15 Standing-BP 144/81, HR 59, O2 87, RR 20 Sitting after ambulating 250 feet-BP [id number], HR 65, O2 89, RR 24 2 slightly unsteady moments but pt remains asymptomatic. States he usually stumbles occasionally. Pt sat up to eat dinner. Complained of dizziness immediately after eating. No changes in VS. Pt and daughter state he became dizzy this morning after eating breakfast followed by HR in 30's.
[2022-01-09 20:50] LABS: Glucose Point of Care 226 mg/dL (70-110)
[2022-01-10] VITALS (16 sets, daily range): BP systolic 119–178; BP diastolic 71–106; PULSE 56–83; RESP 11–24; TEMP 36.6–36.7; O2SAT 93–97
[2022-01-10 05:17] LABS: INR 1.51 (0.8-1.2)
[2022-01-10 05:28] LABS: Anion Gap 12.7 (5-19); Blood Urea Nitrogen 25 mg/dL (8-23); Calcium 8.8 mg/dL (8.5-10.5); Carbon Dioxide 26 mmol/L (22-29); Chloride 106 mmol/L (98-107); Glucose 172 mg/dL (65-115); Osmolality Calculated 298 mOsm/kg (285-295); Potassium 4.7 mmol/L (3.5-5.1); Sodium 140 mmol/L (136-145)
[2022-01-10 07:13] LABS: Glucose Point of Care 217 mg/dL (70-110)
[2022-01-10] MEDS: finasteride 5 mg Tablet PO (07:52)
[2022-01-10] MEDS: losartan 50 mg Tablet 25 MG PO (07:52)
[2022-01-10] MEDS: insulin lispro 100 unit/1 mL SUBCUT ×2 (07:53→12:05)
[2022-01-10] MEDS: amlodipine 10 mg Tablet PO (07:53)
[2022-01-10] MEDS: hyDRALAzine 25 mg Tablet PO (07:53)
--- NOTE | 2022-01-10 08:25 | P.PN_ITS ---
Subjective Subjective: Patient is feeling well. Heart rates are improved today. Blood pressure is still elevated Vitals/I&O/Wt Last Vital Signs Temp 98.0 F 01/10/22 08:00 Pulse 83 01/10/22 08:00 Resp 19 H 01/10/22 08:00 BP 174/90 01/10/22 08:00 Pulse Ox 95 01/10/22 08:00 01/09/22 01/10/22 01/10/22 22:59 06:59 14:59 Intake Total 300 / 780 240 / 240 Output Total 400 / 400 Balance 300 / -420 -160 / -160 Weight last 48 hrs Weight 210 lb Weight 210 lb Physical Exam Narrative: GENERAL: Patient is alert, awake and oriented x3. [] NECK: No jugular vein distension. [] HEENT: No cyanosis. No icterus. No pallor. [] HEART: Irregularly irregular. Grade 3/6 systolic murmur LUNGS: Clear to auscultate bilaterally. [] ABDOMEN: Soft, nontender and nondistended. Positive bowel sounds. No guarding, rebound or tenderness. [] CENTRAL NERVOUS SYSTEM: Grossly nonfocal. [] EXTREMITIES: Lower extremities with 1+ edema bilaterally. Pulses palpable in the lower extremities, both dorsalis pedis and posterior tibial. [] ? Data : 01/09/22 04:13 01/10/22 04:52 A&P Assessment and plan (1) Bradycardia: Status: Resolved (2) Atrial fibrillation with slow ventricular response: (3) Type 2 diabetes mellitus: (4) HLD (hyperlipidemia): Plan Patient has presented with atrial fibrillation with slow heart rate. He is already on anticoagulation with Coumadin. Continue. Heart rates have improved significantly. Off of atenolol. Continue holding all rate controlling agents. Blood pressure is elevated. Will need further adjustment of antihypertensive regimen. Echocardiogram shows moderate aortic stenosis. This will need to be followed as outpatient. Thank you for involving us with care of this patient. Patient is stable for discharge from cardiology standpoint. Order outpatient event monitor. Please call with questions Attestations Medical Necessity Statement*: Care expected to cross 2 midnights Coding Level of Care Code Acute [place] for g Fwd Diagnoses Bradycardia R00.1 Atrial fibrillation with slow ventricular response I48.91 Type 2 diabetes mellitus E11.9 HLD (hyperlipidemia) E78.5
--- NOTE | 2022-01-10 09:47 | PC.NURSE ---
Ambulated pt approx 200ft around unit. Tolerated well. HR remained in 70's and 80's, BP normotensive. Pt back to chair in room. Will monitor.
[2022-01-10 11:13] LABS: Glucose Point of Care 218 mg/dL (70-110)
--- NOTE | 2022-01-10 11:45 | P.DS_ITS ---
Discharge Providers Date of Admission: 01/08/22 18:04 Date of Discharge: January 10, 2022 Attending Provider at Admission: Hoda Angulo MD Attending Provider at Discharge: Hoda Angulo MD Primary Care Provider: Alfredito Chandra DO Diagnoses at Discharge Discharge Diagnosis (1) Bradycardia: Status: Acute (2) Atrial fibrillation with slow ventricular response: Status: Acute (3) Type 2 diabetes mellitus: Status: Acute (4) HLD (hyperlipidemia): Status: Acute Reason for Visit Reason for Visit: low HR Hospital Course Hospital Course Pleasant 76-year-old male who was admitted for management evaluation of presyncope, shortness of breath. In the ER he was diagnosed with A. fib slow ventricular response, recently his atenolol dose was increased to 50 mg twice a day by his PCP. No active chest pain, troponin is trending down. TSH normal. No electrolyte imbalance. Patient was hemodynamically stable. In fact he remained hypertensive throughout his hospitalization. He does carry history of chronic kidney disease. Cardiology was consulted who recommended discharge on event monitor. No indication for pacemaker at this point his bradycardia is associated with use of AV boy blocking agents. His atenolol dose was very high for management of blood pressure. He will follow-up with cardiology within 2 weeks. Patient was kept in the ICU because he started experiencing bradycardic episodes when he started to get up and walk around on 01/09. However in the ICU he remained hemodynamically stable, heart rate on 01/10 is in the 80-90 range, on ambulation he is not experiencing any symptoms, his heart rate and blood pressure has been stable. For his hypertension I have added hydralazine. For his blood pressure he will take amlodipine, losartan and hydralazine. Clonidine and atenolol discontinued He can continue his Coumadin His GFR is nonreportable, I would not take a chance and discontinue metformin now onwards For his A. fib he will need AV boy blocking agent only once his heart rate has improved and the effect of atenolol is gone that is why I will give him close follow-up with his PCP and tire changer. Physical Exam Narrative: Patient is asymptomatic on ambulation, heart rate is ranging between 70 to 80s, A. fib euvolemic Very pleasant and cooperative Saturating well on room air Patient was asymptomatic Nonfocal neuro exam Abdomen soft ? Discharge Data Studies Completed and Pending Completed Studies During Hospitalization Category Date Time Status XR chest 1V portable [id number] Stat Exams 01/08/22 16:44 Completed CV. echo complete* [id number] Stat Ultrasound 01/08/22 19:09 Completed Pending at discharge Category Date Time Status Prothrombin Time INR AM LABS Lab 01/11/22 04:00 Ordered Prothrombin Time INR AM LABS Lab 01/12/22 04:00 Ordered Radiology Impressions Chest X-Ray 01/08/22 16:44 IMPRESSION: No acute infiltrate. Laboratory Results WBC 9.0 10^3/uL (4.0-10.0) 01/09/22 04:13 RBC 5.41 10^6/uL (4.1-5.3) H 01/09/22 04:13 Hgb 14.3 g/dL (11.7-16.6) 01/09/22 04:13 Hct 46.1 % (42.0-52.0) 01/09/22 04:13 MCV 85.2 fl (80-94) 01/09/22 04:13 MCH 26.4 pg (28.0-34.0) L 01/09/22 04:13 MCHC 31.0 g/dL (30.0-36.0) 01/09/22 04:13 RDW 14.9 % (12.1-15.1) 01/09/22 04:13 Plt Count 152 10^3/cmm (130-400) 01/09/22 04:13 MPV 12.4 fL (7.4-10.4) H 01/09/22 04:13 Neut % (Auto) 47.4 % 01/09/22 04:13 Lymph % (Auto) 45.2 % 01/09/22 04:13 [place] % (Auto) 5.9 % 01/09/22 04:13 Eos % (Auto) 0.9 % 01/09/22 04:13 Baso % (Auto) 0.4 % 01/09/22 04:13 Neut # (Auto) 4.25 10^3/uL (1.8-7.7) 01/09/22 04:13 Lymph # (Auto) 4.1 10^3/uL (0.8-4.8) 01/09/22 04:13 [place] # (Auto) 0.5 10^3/uL (0.2-0.9) 01/09/22 04:13 Eos # (Auto) 0.1 10^3/uL (0.0-0.8) 01/09/22 04:13 Baso # (Auto) 0.0 10^3/uL (0.0-0.1) 01/09/22 04:13 Nucleated RBC % (auto) 0 % 01/09/22 04:13 Nucleated RBCs # 0.0 /100WBC 01/09/22 04:13 PT 18.60 SECONDS (12.1-14.9) H 01/10/22 04:52 INR 1.51 (0.8-1.2) H 01/10/22 04:52 Sodium 140 mmol/L (136-145) 01/10/22 04:52 Potassium 4.7 mmol/L (3.5-5.1) 01/10/22 04:52 Chloride 106 mmol/L (98-107) 01/10/22 04:52 Carbon Dioxide 26 mmol/L (22-29) 01/10/22 04:52 Anion Gap 12.7 (5-19) 01/10/22 04:52 BUN 25 mg/dL (8-23) H 01/10/22 04:52 Creatinine 1.2 mg/dL (0.7-1.2) 01/10/22 04:52 GFR Calculation Not Reportable 01/10/22 04:52 Glucose 172 mg/dL (65-115) H 01/10/22 04:52 POC Glucose 218 mg/dL (70-110) H 01/10/22 10:58 Calculated Osmolality 298 mOsm/kg (285-295) H 01/10/22 04:52 Calcium 8.8 mg/dL (8.5-10.5) 01/10/22 04:52 Total Bilirubin 1.1 mg/dL (0.15-1.2) 01/08/22 17:29 AST 11 U/L (0-40) 01/08/22 17:29 ALT 19 U/L (0-41) 01/08/22 17:29 Alkaline Phosphatase 99 IU/L (40-130) 01/08/22 17:29 Troponin T Baseline 22 ng/L (0-15) H 01/08/22 17:29 Troponin T 120 Minute 19.30 ng/L (0-15) H 01/08/22 19:20 Delta Troponin T -2.70 ABS# (0-10) L 01/08/22 19:20 Troponin T Hi Sens 6Hr 18.98 ng/L (0-15) H 01/08/22 23:55 Troponin T Hi Sens 6Hr Delta -3.02 ng/L (0-12) L 01/08/22 23:55 Total Protein 6.6 g/dL (6.6-8.7) 01/08/22 17:29 Albumin 4.0 g/dL (3.5-5.2) 01/08/22 17:29 Globulin 2.6 g/dL (1.3-4.6) 01/08/22 17:29 TSH 2.12 uIU/mL (0.27-4.20) 01/08/22 17:29 Urine Color Yellow (Yellow) 01/09/22 16:20 Urine Appearance Clear (CLEAR) 01/09/22 16:20 Urine pH 5 (5-7) 01/09/22 16:20 Ur Specific [place] 1.015 (1.005-1.030) 01/09/22 16:20 Urine Protein Neg (Negative) 01/09/22 16:20 Urine Glucose (UA) 4+ (Normal) H 01/09/22 16:20 Urine Ketones Negative (Negative) 01/09/22 16:20 Urine Blood Neg (Negative) 01/09/22 16:20 Urine Nitrate Negative (Negative) 01/09/22 16:20 Urine Bilirubin Neg (Negative) 01/09/22 16:20 Urine Urobilinogen Norm mg/dL (Negative) 01/09/22 16:20 Ur Leukocyte Esterase Negative (Negative) 01/09/22 16:20 Vitals Last Vital Signs Temp 98.0 F 01/10/22 08:00 Pulse 83 01/10/22 08:00 Resp 19 H 01/10/22 08:00 BP 174/90 01/10/22 08:00 Pulse Ox 95 01/10/22 08:00 Discharge Plan Discharge Patient Disposition: Home Condition: Stable Prescriptions: New hydralazine 25 mg tablet 25 mg PO TID Qty: 90 4RF Continued atorvastatin 20 mg tablet 20 mg PO BEDTIME 0RF vitamin F07-lzeey acid 500-400 mcg tablet 1 tab PO DAILY 0RF Rx Instructions: administer with a meal cholecalciferol (vitamin D3) 25 mcg (1,000 unit) capsule 25 mcg PO DAILY 0RF (DME) pen needle, diabetic [BD Samara 2nd Gen Pen Needle] 32 gauge x 5/32 needle See Rx Instructions .Route Qty: 100 3RF Rx Instructions: As directed (DME) Dexcom G6 Super[employer] Misc See Rx Instructions .Route Qty: 1 0RF Rx Instructions: Check BS 4 -6 times a day. (DME) Dexcom G6 Sensor Device See Rx Instructions .Route Qty: 3 3RF Rx Instructions: Change every 10 days. (DME) Dexcom G6 Transmitter Device See Rx Instructions .Route Qty: 1 3RF Rx Instructions: Change every 90 days. warfarin 4 mg tablet See Rx Instructions .ROUTE .COMPLEX 0RF Rx Instructions: 4 mg orally ON RIK-HJLJ-CEMOL-FRI AND HALF A TAB ON FRI-FRI-FRI finasteride 5 mg tablet 5 mg PO DAILY 0RF sertraline 100 mg Tablet 100 mg PO DAILY 0RF pregabalin 75 mg Capsule 75 mg PO BID 0RF Novolin 70/30 U-100 Insulin 100 unit/mL (70-30) Suspension 40 unit SUBCUT BID 0RF hydrocodone-acetaminophen 10-325 mg tablet 1 tab PO TID PRN (Reason: Pain) 0RF sildenafil 25 mg Tablet 25 mg PO DAILY PRN (Reason: Erectile Dysfunction) 0RF Rx Instructions: administer 30 minutes to 4 hours before activity amlodipine 10 mg tablet 10 mg PO DAILY Qty: 90 0RF losartan 100 mg tablet 100 mg PO DAILY Qty: 60 0RF Discontinued atenolol 50 mg tablet 50 mg PO BID 0RF metformin 1,000 mg tablet 500 mg PO BID 0RF clonidine HCl 0.1 mg Tablet 0.05 mg PO BID 0RF Other Ambulatory Orders: MCT/Event Monitor 30 Days (Routine) Timeframe: 30 Days Facility: [facility] - Location: Radiology Ordered By: Hoda Angulo Referrals: Alfredito Chandra DO [Primary Care Provider] - 01/15/22 8:30 am Elías Gutierrez M.D [Physician] - 4-7 days Discharge Diet: Cardiac Discharge Activity: Increase activity as tolerated Patient Instructions: Hydralazine (By mouth), Bradycardia (GEN), Opioid Safety Activity Restrictions/Additional Instructions: do not take clonidine and atenolol, BP regimen :- Hydralazine 25mg tid losartan 100mg daily amlodipine 10 mg daily stop taking metformin because of chronic kidney disease Discharge Attestations Time Spent in Discharge Care*: less than 30 min Quality Metrics Clinical Quality Measures [ No reported AMI, CVA or VTE this stay] Coding Level of Care Code Acute Chg FW DC note Diagnoses Bradycardia R00.1 Atrial fibrillation with slow ventricular response I48.91 Type 2 diabetes mellitus E11.9 HLD (hyperlipidemia) E78.5
--- NOTE | 2022-01-10 12:54 | PC.NURSE ---
PIV removed, dc instructions given. Rx sent to pharmacy and pt wheeled to waiting private vehicle.
== END 2022-01-10 12:53 | disposition home or self-care (01) ==
LOC: ER 01-09 00:04 → MEDSURG 01-09 00:57 → ICU 01-09 14:30
PROVIDERS: Admitting Provider Internal Medicine; Emergency Provider Family Medicine; PCP Family Medicine; Visit Provider Internal Medicine
DX: R00.1 Bradycardia, unspecified (principal); I48.91 Unspecified atrial fibrillation; E78.5 Hyperlipidemia, unspecified; E11.22 Type 2 diabetes mellitus with diabetic chronic kidney disease; I12.9 Hypertensive chronic kidney disease with stage 1 through stage 4 chronic kidney disease, or unspecified chronic kidney disease; N18.9 Chronic kidney disease, unspecified; Z86.718 Personal history of other venous thrombosis and embolism; Z79.01 Long term (current) use of anticoagulants; Z79.84 Long term (current) use of oral hypoglycemic drugs
CPT/HCPCS: 36415; 36416; 71045; 80048; 80053; 81003; 82962; 84443; 84484; 85025; 85610; 93005; 93306; 96372; 96374; 96375; 99285; G0378; J1815; J2405

== ENCOUNTER → 2022-01-17 09:20 | Outpatient (BNVA) | payer MEDICARE, SELFPAY | PROVIDERS: PCP Family Medicine; Visit Provider Internal Medicine | DX: Z53.9 Procedure and treatment not carried out, unspecified reason (principal) ==

== ENCOUNTER → 2022-01-21 10:20 | Outpatient (BNVA) | payer MEDICARE, MEDICAID, SELFPAY | PROVIDERS: PCP Family Medicine; Visit Provider Nurse Practitioner Family | DX: I48.91 Unspecified atrial fibrillation (principal) | CPT/HCPCS: 99213 ==

== ENCOUNTER → 2022-02-28 14:58 | Outpatient (BNVA) | payer MEDICARE, MEDICAID, SELFPAY | PROVIDERS: PCP Family Medicine; Visit Provider Internal Medicine | DX: I48.91 Unspecified atrial fibrillation (principal); I12.9 Hypertensive chronic kidney disease with stage 1 through stage 4 chronic kidney disease, or unspecified chronic kidney disease; E13.22 Other specified diabetes mellitus with diabetic chronic kidney disease; N18.9 Chronic kidney disease, unspecified; Z87.891 Personal history of nicotine dependence; Z79.4 Long term (current) use of insulin; E78.5 Hyperlipidemia, unspecified | CPT/HCPCS: 99214 ==

== ENCOUNTER → 2022-03-26 08:37 | Outpatient (BNVA) | payer MEDICARE, MEDICAID, SELFPAY | PROVIDERS: PCP Family Medicine; Visit Provider Family Medicine | DX: I10 Essential (primary) hypertension (principal); E78.5 Hyperlipidemia, unspecified; I48.91 Unspecified atrial fibrillation; E13.22 Other specified diabetes mellitus with diabetic chronic kidney disease; E13.9 Other specified diabetes mellitus without complications; M53.3 Sacrococcygeal disorders, not elsewhere classified; G89.29 Other chronic pain; M16.11 Unilateral primary osteoarthritis, right hip | CPT/HCPCS: 80053; 80061; 83036; 85025; 85610 ==

== ENCOUNTER → 2022-06-26 13:17 | Outpatient (BNVA) | payer MEDICARE, MEDICAID, SELFPAY | PROVIDERS: PCP Family Medicine; Visit Provider Family Medicine | DX: M54.9 Dorsalgia, unspecified (principal); I10 Essential (primary) hypertension; E78.5 Hyperlipidemia, unspecified; I48.91 Unspecified atrial fibrillation; E13.9 Other specified diabetes mellitus without complications; M48.062 Spinal stenosis, lumbar region with neurogenic claudication; E13.22 Other specified diabetes mellitus with diabetic chronic kidney disease | CPT/HCPCS: 80053; 80061; 83036; 85610 ==

== ENCOUNTER → 2022-07-19 10:28 | Outpatient (BNVA) | payer MEDICARE, MEDICAID, SELFPAY | PROVIDERS: PCP Family Medicine; Visit Provider Family Medicine | DX: E13.22 Other specified diabetes mellitus with diabetic chronic kidney disease (principal); E78.5 Hyperlipidemia, unspecified; I10 Essential (primary) hypertension | CPT/HCPCS: 85610 ==

== ENCOUNTER → 2022-08-09 10:34 | Outpatient (BNVA) | payer MEDICARE, MEDICAID, SELFPAY | PROVIDERS: PCP Family Medicine; Visit Provider Family Medicine | DX: E13.22 Other specified diabetes mellitus with diabetic chronic kidney disease (principal); I10 Essential (primary) hypertension; E78.5 Hyperlipidemia, unspecified | CPT/HCPCS: 85610 ==

== ENCOUNTER → 2022-09-02 14:22 | Outpatient (BNVA) | payer MEDICARE, MEDICAID, SELFPAY | PROVIDERS: PCP Family Medicine; Visit Provider Family Medicine | DX: E13.22 Other specified diabetes mellitus with diabetic chronic kidney disease (principal) | CPT/HCPCS: 85610 ==

== ENCOUNTER → 2022-09-24 09:34 | Outpatient (BNVA) | payer MEDICARE, MEDICAID, SELFPAY | PROVIDERS: PCP Family Medicine; Visit Provider Family Medicine | DX: E13.9 Other specified diabetes mellitus without complications (principal); E78.5 Hyperlipidemia, unspecified; I10 Essential (primary) hypertension; E13.22 Other specified diabetes mellitus with diabetic chronic kidney disease; Z79.01 Long term (current) use of anticoagulants; I48.91 Unspecified atrial fibrillation | CPT/HCPCS: 80053; 80061; 83036 ==

== ENCOUNTER 2022-10-28 13:18 | Emergency (ER) | payer MEDICARE, MEDICAID, SELFPAY ==
[2022-10-28 13:41] VITALS: BP 162/78; PULSE 74; RESP 16; TEMP 36.4; O2SAT 96; BMI 35.5
--- NOTE | 2022-10-28 13:54 | XRR_ITS ---
PROCEDURE INFORMATION: Exam: XR Right Shoulder Exam date and time: 10/28/2022 2:04 PM Age: 77 years old Clinical indication: Injury or trauma; Fall; Blunt trauma (contusions or hematomas); Shoulder; Right; Additional info: Injury/pain TECHNIQUE: Imaging protocol: Radiologic exam of the right shoulder. Views: 2 or more views. COMPARISON: CR XR chest 1V portable [id number] 01/08/2022 4:55 PM FINDINGS: Bones/joints: Negative for acute fracture or bone abnormality. Soft tissues: Small soft tissue density is seen near the humeral head which may reflect calcific tendinitis XR/XR shoulder RT min 2V* [id number] IMPRESSION: 1. No acute right shoulder bone abnormality. 2. Calcific tendinitis
--- NOTE | 2022-10-28 13:55 | W.ED.EXTPRO ---
HPI - Extremity Problem General: Chief complaint: Extremity Injury, Upper Stated complaint: pain in shoulder and arm Time Seen by Provider: 10/28/22 13:45 Source: patient and family Mode of arrival: ambulatory Limitations: no limitations History of Present Illness: Patient is a very nice 77-year-old male who presents to ED today for evaluation of right shoulder pain. He states shoulder has been bothering him for several weeks now. He states pain is constant but over the past week or so it seems to be even more so bothersome. He feels like pain is mainly located to the superior aspect of his right shoulder. He states he does not have any nerve like pain extending down into the extremity. Denies numbness, tingling, loss of sensation. He has not noticed any notable weakness. States he does have a little bit of muscle pain to the left side of his neck. He states pain seems to be worse with movement and lying on the shoulder. MD Complaint: joint pain Onset (ago): week(s) Pain Consistency: constant Location: right and upper extremity Radiation: none Relieving factors: nothing Exacerbating factors: range of motion and other (lying on shoulder ) Associated symptoms: Reports no associated symptoms; Deny chest pain Review of Systems Card: Denies: chest pain Resp: Denies: dyspnea Musc: Reports: neck pain and joint pain (R shoulder); Denies: back pain, extremity pain, extremity swelling, joint swelling or joint redness Neuro: Denies: headache(s), numbness in extremities, weakness in extremities, sensory changes or dizziness PFS ED PFSH: Medical History Acute biliary pancreatitis Atrial fibrillation with slow ventricular response Chronic kidney disease H/O blood clots HLD (hyperlipidemia) Hypertension Pseudocyst of pancreas Type 2 diabetes mellitus Surgical History History of cholecystectomy Family History Father Cancer Mother Pneumonia Sister Aneurysm Brother AA (aortic aneurysm) Social History Smoking and tobacco status: former smoker Alcohol intake: never Substance/Drug Use: never Physical Exam Const: COMMON NORMALS: no acute distress, average body habitus, patient oriented x3, no limitations, alert and well nourished Neck/C-Spine: COMMON NORMALS: full ROM GENERAL: Yes normal visual inspection CERVICAL SPINE: No Cervical spine tenderness and No step off deformity Chest: COMMONS NORMALS: normal inspection of the chest and normal palpation of entire chest wall Resp: COMMON NORMALS: normal respiratory effort and clear to auscultation bilaterally AUSCULTATION: clear to auscultation bilaterally Cardio: COMMON NORMALS: regular rate and regular rhythm RATE: regular rate RHYTHM: regular rhythm Back/Pelvis: COMMON NORMALS: thoracic and lumbar spine normal to inspection, no thoracic nor lumbar tenderness and thoraco-lumbar ROM normal Extremity: COMMON NORMALS: normal to inspection, full ROM and capillary refill normal GENERAL: Yes normal exam except as noted RIGHT UPPER EXTREMITY: Yes shoulder joint (TTP superior R shoulder joint with maintained ROM) Right shoulder: Yes Right shoulder joint neurovascular exam (normal) and Yes Right shoulder joint special tests Right shoulder special tests: Empty can test: Negative and Drop arm test: Negative Neuro: COMMON NORMALS: patient oriented x3, moves all extremities, no focal motor deficits and no sensory deficits noted SENSORIUM/ORIENTATION: Yes alert MOTOR EXAM: 5/5 motor strength present throughout Skin: COMMON NORMALS: no rashes or lesions noted GENERAL SKIN EXAM: no rashes or lesions noted Course Vital Signs: Vital signs: Vital Signs Temperature 97.5 F L 10/28/22 13:41 Pulse Rate 74 10/28/22 13:41 Respiratory Rate 16 10/28/22 13:41 Blood Pressure 162/78 10/28/22 13:41 Pulse Oximetry 96 10/28/22 13:41 Oxygen Delivery Me thod Room Air 10/28/22 13:41 MDM - Extremity (Nontraumatic) Medical Decision Making Personal interpretation of patient's XR 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 No acute fractures or dislocations noted. We will place patient on steroid. Recommended anti-inflammatory however they were told by PCP he is not supposed to be taking these. They do have an appointment with PCP tomorrow that they can discuss. Return ED precautions given. Discharge Plan Discharge Patient Disposition: Home Clinical Impression: Calcific tendinitis of right shoulder Condition: Stable Prescriptions: New Medrol (Nii) 4 mg tablets,dose pack See Rx Instructions .ROUTE .COMPLEX Qty: 21 0RF Rx Instructions: orally per package directions No Action vitamin Y23-whdin acid 500-400 mcg tablet 1 tab PO DAILY Rx Instructions: administer with a meal cholecalciferol (vitamin D3) 25 mcg (1,000 unit) capsule 25 mcg PO DAILY (DME) pen needle, diabetic [BD Samara 2nd Gen Pen Needle] 32 gauge x 5/32 needle See Rx Instructions .Route Qty: 100 3RF Rx Instructions: As directed finasteride 5 mg tablet 5 mg PO DAILY hydralazine 50 mg tablet 50 mg PO TID Qty: 270 3RF atenolol 50 mg tablet PO clonidine HCl 0.1 mg tablet 0.1 mg PO oxycodone 10 mg tablet 10 mg PO TID PRN (Reason: pain) 10 Days Qty: 30 0RF pregabalin 75 mg capsule 75 mg PO BID Qty: 180 3RF atorvastatin 20 mg tablet 20 mg PO BEDTIME Qty: 90 3RF sertraline 100 mg tablet 100 mg PO DAILY Qty: 90 1RF amlodipine 10 mg tablet 10 mg PO DAILY Qty: 90 3RF losartan 100 mg tablet See Rx Instructions .ROUTE .COMPLEX Qty: 90 3RF Dose Instruction: TAKE 1 TABLET BY MOUTH ONCE DAILY FOR HIGH BLOOD PRESSURE Rx Instructions: TAKE 1 TABLET BY MOUTH ONCE DAILY FOR HIGH BLOOD PRESSURE warfarin 5 mg tablet 4 mg PO DAILY Qty: 30 1RF Ozempic 0.25 mg or 0.5 mg(2 mg/1.5 mL) pen injector 0.25 mg SUBCUT .weekly Qty: 1.5 2RF Humulin 70/30 U-100 KwikPen 100 unit/mL (70-30) insulin pen See Rx Instructions .ROUTE .COMPLEX Qty: 15 5RF Dose Instruction: INJECT 50 UNITS SUBCUTANEOUSLY IN THE MORNING AND 30 IN THE EVENING Rx Instructions: INJECT 50 UNITS SUBCUTANEOUSLY IN THE MORNING AND 30 IN THE EVENING (DME) Dexcom G6 Split Leather [place] Misc See Rx Instructions .Route Qty: 1 0RF Rx Instructions: Check BS 4 -6 times a day. (DME) Dexcom G6 Sensor Device See Rx Instructions .Route Qty: 3 3RF Rx Instructions: Change every 10 days. (DME) Dexcom G6 Transmitter Device See Rx Instructions .Route Qty: 1 3RF Rx Instructions: Change every 90 days. sildenafil 25 mg Tablet 25 mg PO DAILY PRN (Reason: Erectile Dysfunction) Rx Instructions: administer 30 minutes to 4 hours before activity Discharge Orders: Discharge ED (Routine); Ordered 10/28/22 Ordered By: Vanessa Wilson Referrals: Alfredito Chandra, [Primary Care Provider] - Patient Instructions: Calcific Tendinitis (ED) Activity Restrictions/Additional Instructions: Please keep appointment with primary care tomorrow. You have indicated they have instructed you to not take anti-inflammatories. You can discuss with them whether they would like to place you on these for your shoulder pain. Coding Level of Care Code ED [employer] Manager Architect for Dipesh Robles
[2022-10-28] MEDS: ketorolac 30 mg/mL INJ 15 MG IM (14:32)
== END 2022-10-28 14:52 | disposition home or self-care (01) ==
PROVIDERS: Emergency Provider Physician Assistant; PCP Family Medicine
DX: M75.31 Calcific tendinitis of right shoulder (principal); Z79.01 Long term (current) use of anticoagulants; Z79.4 Long term (current) use of insulin; E11.22 Type 2 diabetes mellitus with diabetic chronic kidney disease; I12.9 Hypertensive chronic kidney disease with stage 1 through stage 4 chronic kidney disease, or unspecified chronic kidney disease; N18.9 Chronic kidney disease, unspecified; E78.5 Hyperlipidemia, unspecified; Z87.891 Personal history of nicotine dependence
CPT/HCPCS: 73030; 96372; 99284; J1885; J2920

== ENCOUNTER → 2022-12-17 10:19 | Outpatient (BNVA) | payer MEDICARE, MEDICAID, SELFPAY | PROVIDERS: PCP Family Medicine; Visit Provider Family Medicine | DX: E13.22 Other specified diabetes mellitus with diabetic chronic kidney disease (principal); I10 Essential (primary) hypertension | CPT/HCPCS: 80053; 83036; 85610 ==

== ENCOUNTER → 2022-12-26 08:51 | Outpatient (BNVA) | payer MEDICARE, MEDICAID, SELFPAY | PROVIDERS: PCP Family Medicine; Visit Provider Family Medicine | DX: I48.91 Unspecified atrial fibrillation (principal) | CPT/HCPCS: 85610 ==

== ENCOUNTER → 2023-01-02 10:11 | Outpatient (BNVA) | payer MEDICARE, MEDICAID, SELFPAY | PROVIDERS: PCP Family Medicine; Visit Provider Family Medicine | DX: E13.22 Other specified diabetes mellitus with diabetic chronic kidney disease (principal); N18.9 Chronic kidney disease, unspecified | CPT/HCPCS: 85610 ==

== ENCOUNTER → 2023-02-17 11:04 | Outpatient (BNVA) | payer MEDICARE, MEDICAID, SELFPAY | PROVIDERS: PCP Family Medicine; Visit Provider Family Medicine | DX: E87.1 Hypo-osmolality and hyponatremia (principal); E13.22 Other specified diabetes mellitus with diabetic chronic kidney disease; Z79.01 Long term (current) use of anticoagulants; I48.91 Unspecified atrial fibrillation; I10 Essential (primary) hypertension; R60.9 Edema, unspecified | CPT/HCPCS: 80048; 85610 ==

== ENCOUNTER → 2023-02-21 11:26 | Outpatient (BNVA) | payer MEDICARE, MEDICAID, SELFPAY | PROVIDERS: PCP Family Medicine; Visit Provider Family Medicine | DX: E13.22 Other specified diabetes mellitus with diabetic chronic kidney disease (principal) | CPT/HCPCS: 85610 ==

== ENCOUNTER → 2023-03-17 09:49 | Outpatient (BNVA) | payer MEDICARE, MEDICAID, SELFPAY | PROVIDERS: PCP Family Medicine; Visit Provider Family Medicine | DX: E13.22 Other specified diabetes mellitus with diabetic chronic kidney disease (principal); I10 Essential (primary) hypertension | CPT/HCPCS: 80053; 83036; 85610 ==

== ENCOUNTER → 2023-06-17 08:01 | Outpatient (BNVA) | payer MEDICARE, MEDICAID, SELFPAY | PROVIDERS: PCP Family Medicine; Visit Provider Family Medicine | DX: E13.9 Other specified diabetes mellitus without complications (principal); I10 Essential (primary) hypertension; I48.91 Unspecified atrial fibrillation; Z13.6 Encounter for screening for cardiovascular disorders | CPT/HCPCS: 80053; 80061; 83036; 85025 ==

== ENCOUNTER → 2023-08-25 08:17 | Outpatient (BNVA) | payer MEDICARE, MEDICAID, SELFPAY | PROVIDERS: PCP Family Medicine; Visit Provider Family Medicine | DX: I10 Essential (primary) hypertension (principal); E78.5 Hyperlipidemia, unspecified; E11.9 Type 2 diabetes mellitus without complications; E13.9 Other specified diabetes mellitus without complications | CPT/HCPCS: 80053; 80061; 83036 ==

== ENCOUNTER → 2024-01-19 09:02 | Outpatient (BNVA) | payer MEDICARE, MEDICAID, SELFPAY | PROVIDERS: PCP Family Medicine; Visit Provider Family Medicine | DX: E13.9 Other specified diabetes mellitus without complications (principal); I10 Essential (primary) hypertension; I48.91 Unspecified atrial fibrillation; E78.5 Hyperlipidemia, unspecified; E11.9 Type 2 diabetes mellitus without complications; M54.9 Dorsalgia, unspecified; L98.9 Disorder of the skin and subcutaneous tissue, unspecified | CPT/HCPCS: 80053; 80061; 83036 ==

== ENCOUNTER → 2024-02-05 14:35 | Outpatient (BNVA) | payer MEDICARE, MEDICAID, SELFPAY | PROVIDERS: PCP Family Medicine; Referring Provider Family Medicine; Visit Provider Nurse Practitioner Family | DX: D48.5 Neoplasm of uncertain behavior of skin (principal); L21.8 Other seborrheic dermatitis; L91.8 Other hypertrophic disorders of the skin; L81.4 Other melanin hyperpigmentation; L82.1 Other seborrheic keratosis | CPT/HCPCS: 11102; 17110; 69100; 99204 ==

== ENCOUNTER → 2024-04-08 10:34 | Outpatient (BNVA) | payer MEDICARE, MEDICAID, SELFPAY | PROVIDERS: PCP Family Medicine; Visit Provider Family Medicine | DX: I10 Essential (primary) hypertension (principal); E78.5 Hyperlipidemia, unspecified; E11.9 Type 2 diabetes mellitus without complications; E13.9 Other specified diabetes mellitus without complications | CPT/HCPCS: 80053; 80061; 83036 ==

== ENCOUNTER → 2024-07-08 11:33 | Outpatient (BNVA) | payer MEDICARE, MEDICAID, SELFPAY | PROVIDERS: PCP Family Medicine; Visit Provider Family Medicine | DX: I10 Essential (primary) hypertension (principal); E78.5 Hyperlipidemia, unspecified; E11.9 Type 2 diabetes mellitus without complications; M53.3 Sacrococcygeal disorders, not elsewhere classified; G89.29 Other chronic pain | CPT/HCPCS: 80053; 80061; 83036 ==

== ENCOUNTER → 2024-07-12 11:11 | Outpatient (BNVA) | payer MEDICARE, OTHER, SELFPAY | PROVIDERS: PCP Family Medicine; Visit Provider Nurse Practitioner Family | DX: L21.8 Other seborrheic dermatitis (principal); L81.4 Other melanin hyperpigmentation; Z08 Encounter for follow-up examination after completed treatment for malignant neoplasm; Z85.828 Personal history of other malignant neoplasm of skin; L57.0 Actinic keratosis | CPT/HCPCS: 17000; 99213 ==

== ENCOUNTER → 2024-10-01 08:15 | Outpatient (BNVA) | payer MEDICARE, OTHER, MEDICAID, SELFPAY | PROVIDERS: PCP Family Medicine; Visit Provider Family Medicine | DX: E11.9 Type 2 diabetes mellitus without complications (principal); I48.91 Unspecified atrial fibrillation | CPT/HCPCS: 80053; 80061; 83036 ==

== ENCOUNTER → 2025-01-10 09:41 | Outpatient (BNVA) | payer MEDICARE, OTHER, MEDICAID, SELFPAY | PROVIDERS: PCP Family Medicine; Visit Provider Nurse Practitioner Family | DX: D23.62 Other benign neoplasm of skin of left upper limb, including shoulder (principal); L81.4 Other melanin hyperpigmentation; L57.8 Other skin changes due to chronic exposure to nonionizing radiation; X32.XXXA Exposure to sunlight, initial encounter; D18.01 Hemangioma of skin and subcutaneous tissue; L91.8 Other hypertrophic disorders of the skin; L73.8 Other specified follicular disorders; L82.1 Other seborrheic keratosis; Z08 Encounter for follow-up examination after completed treatment for malignant neoplasm; Z85.828 Personal history of other malignant neoplasm of skin; L82.0 Inflamed seborrheic keratosis; L29.89 Other pruritus | CPT/HCPCS: 17000; 17110; 99213 ==

== ENCOUNTER 2025-03-09 10:42 | Emergency (ER) | payer MEDICARE, MEDICAID, SELFPAY ==
--- OUTSIDE RECORDS SUMMARY | 2025-03-09 10:49 | XMS_ITS | Encounter Summary ---
Author Organization [facility] Address [address] [place] [address] Care Team Providers Care Transmission And Protection Engineer Name Role Phone Alfredito Chandra DO Primary Care Provider Encounter Details Date Type Department Care Team (Late st Contact Info) Description 11/16/2019 Ancillary Orders [facility] Orthopedics - Orthopedic [facility] [address] [place] [address] [facility], External Provider [address] [place] [address] Pain Social History Tobacco Use Types Packs/Day Years Used Date Smoking Tobacco: Never Smokeless Tobacco: Never Sex and Gender Information Value Date Recorded Sex Assigned at Not on file Legal Sex Male 1:36 PM CDT Gender Identity Not on file Sexual Orientation Not on file COVID-19 Exposure Response Date Recorded In the last month, have you been in contact with someone who was confirmed or suspected to have Coronavirus / COVID-19? No / Unsure 11/16/2019 2:15 PM CDT documented as of this encounter Plan of Treatment Not on file documented as of this encounter Results * XR PRIOR STUDY (08/18/2019 12:00 PM BOTTLE CASER) Narrative 11/16/2019 12:43 PM CDT This exam was auto finalized to allow images to be scanned to PACS. us External Provider [facility] DIAGNOSTIC IMAGING ORDERAB LES Final Result * XR PRIOR STUDY (07/02/2019 12:00 PM BOTTLE CASER) Narrative 11/16/2019 12:44 PM CDT This exam was auto finalized to allow images to be scanned to PACS. us External Provider [facility] DIAGNOSTIC IMAGING ORDERAB LES Final Result documented in this encounter Visit Diagnoses Diagnosis Pain Generalized pain Pain Generalized pain Pain Generalized pain documented in this encounter Care Teams Transmission And Protection Engineer Relationship Specialty Start Date End Date Alfredito Chandra DO [address] [place] [address] PCP - General Family Practice 09/01/19 documented as of this encounter
--- OUTSIDE RECORDS SUMMARY | 2025-03-09 10:49 | XMS_ITS | Encounter Summary ---
Author Organization [facility] Address [address] [place] [address] Phone Care Team Providers Care Manager Actuarial Name Role Phone Unavailable Primary Care Provider Unavailabl e Encounter Details Date Type Department Care Team (Late st Contact Info) Description 12/28/2020 [facility] [address] [place] [address] Acute kidney failure, not otherwise specified (HCC) Social History Tobacco Use Types Packs/Day Years Used Date Smoking Tobacco: Never Assessed Sex and Gender Information Value Date Recorded Sex Assigned at Not on file Legal Sex Male 11:33 AM EDT Gender Identity Not on file Sexual Orientation Not on file documented as of this encounter Plan of Treatment Not on file documented as of this encounter Visit Diagnoses Diagnosis Acute kidney failure, not otherwise specified (HCC) documented in this encounter
--- OUTSIDE RECORDS SUMMARY | 2025-03-09 10:49 | XMS_ITS | Clinical Summary ---
Author Organization [facility] Address [address] [place] [address] Care Team Providers Care Claim Rep Name Role Phone Unavailable Primary Care Provider Unavailabl e Social History Tobacco Use Types Packs/Day Years Used Date Smoking Tobacco: Never Assessed Sex and Gender Information Value Date Recorded Sex Assigned at Not on file Legal Sex Male 11:33 AM EDT Gender Identity Not on file Sexual Orientation Not on file Plan of Treatment Health Maintenance Due Date Last Done Comments Pneumococcal Vaccine: 50+ Ye ars (1 of 1 - PCV) 1993 Influenza Vaccine (#1) 2025 Hepatitis B Vaccine Aged Out No longe r eligible based on patient's age to complete this topic Insurance Medicare
--- OUTSIDE RECORDS SUMMARY | 2025-03-09 10:49 | XMS_ITS | Clinical Summary ---
Author Organization [facility] Address [address] Naqvin: Epic Prelude ADT [place] [address] Care Team Providers Care Command And Control Name Role Phone Alfredito Chandra DO Primary Care Provider [phone] Allergies No known active allergies Medications atorvastatin (LIPITOR) 20 mg tablet Take 20 mg by mouth daily. 11/15/19 22 Active finasteride (PROSCAR) 5 mg tablet Take 5 mg by mouth daily. 11/16/19 20 Active insulin NPH-regular (HUMULIN 70-30,NOVOLIN 70-30) 100 unit/mL (70-30) injection Inject by subcutaneous injection. 11/16/19 20 Active Additional Information Patient taking differently:subCUTTWO TIMES DAILY, 50 in the AM, 30 in PM, Reported on 11/05/2022 losartan (COZAAR) 100 mg tablet Take 100 mg by mouth daily. 11/16/19 20 Active amLODIPine (NORVASC) 10 mg tablet Take 10 mg by mouth daily. 11/16/19 20 Active hydrALAZINE (APRESOLINE) 50 mg tablet Take 50 mg by mouth 3 times daily. 10/18/19 23 Active Ozempic 0.25 mg or 0.5 mg (2 mg/3 mL) Pen Injector INJECT 0.25 MG SUBCUTANEOUSLY WEEKLY 10/27/19 23 Active sertraline (ZOLOFT) 100 mg tablet Take 100 mg by mouth daily. 08/28/19 23 Active pregabalin (LYRICA) 75 mg Capsule Take 75 mg by mouth 2 times daily. 03/10/20 23 Active cholecalciferol, vitamin D3, (VITAMIN D3 ORAL) Take 1 Tablet by mouth daily. Active cyanocobalamin, vitamin B-12, (VITAMIN B12 ORAL) Take by mouth. Activ e docusate sodium (STOOL SOFTENER ORAL) Take 1 Capsule by mouth 2 times daily. Active omeprazole 20 mg capsule,delayed release Take 20 mg by mouth daily. Active oxyCODONE-acetam inophen (Percocet) 5-325 mg tabletIndication s:DDD (degenerative disc disease), lumbar,Neurogeni c claudication due to lumbar spinal stenosis,Lumbar facet arthropathy,Sacr oiliac joint somatic dysfunction Take 1 Tablet by mouth every 4 hours as needed for Pain, Moderate. Max Daily Amount: 6 Tablets 42 Tablet 12/03/19 Active cyclobenzaprine (FLEXERIL) 10 mg tablet Take 10 mg by mouth 3 times daily as needed. 12/03/19 Active warfarin (COUMADIN) 5 mg tablet Take 5 mg by mouth daily. 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 11/05/2022 Primary hypertension 11/05/2022 Dyslipidemia 11/05/2022 Personal history of DVT (deep vein thrombosis) 0 11/05/2022 Overview (11/05/2022): 2012- single episode Type 2 diabetes mellitus wit h hyperglycemia, with long-term current use of insulin 11/05/2022 Depression 11/05/2022 GERD (gastroesophageal reflux disease) BPH (benign prostatic hyperplasia) 11/05/2022 History of tobacco use 11/05/2022 Severe obesity (BMI 35.0-39.9) with comorbidity 11/05/2022 Leukocytosis (leucocytosis) 11/05/2022 Elevated serum creatinine 11/05/2022 DDD (degenerative disc disease), lumbar 02/16/20 Lumbar facet arthropathy 02/16/2020 Sacroiliac joint somatic dysfunction 02/16/2020 DDD (degenerative disc disease), lumbosacral Sacroiliac joint pain 02/16/2020 Encounters Date Type Department Care Team Description 12/07/2024 External Device Data STL ABSTRACTION Provider, Abstract from Last 3 Months Family History Medical History Relation Name Comments Heart Attack Brother 1 Bryce Aortic aneurysm Brother 2 Aortic aneurysm Sister 1 Aortic aneurysm Sister 2 Relation Name Status Comments Brother 1 Bill Brother 2 Alive Sister 1 Alive Sister 2 Alive Social History Tobacco Use Types Packs/Day Years Used Date Smoking Tobacco: Former Cigarettes 1 25 1 959 - 1983 Smokeless Tobacco: Former Chew Quit: 1993 Tobacco Cessation:Counseling Given: Not Answered Comments:Chewed for 10 years Alcohol Use Standard Drinks/Week Comments Not Currently 0 (1 standard drink = 0.6 oz pur e alcohol) Feeling Safe Answer Date Recorded Are you in a relationship wi th someone who hurts you emotionally and/or physically? No 11/29/2022 Food Insecurity Answer Date Recorded Social/Environmental Concerns No concerns Transportation Needs Answer Date Record ed Social/Environmental Concerns No concerns Housing Stability Answer Date Recorded Social/Environmental Concerns No concerns Utility Needs Answer Date Recorded Social/Environmental Concerns No concerns Sex and Gender Information Value Date Recorded Sex Assigned at Not on file Legal Sex Male 10:24 PM ADMINISTRATION PHYSICIAN Gender Identity Not on file Sexual Orientation Not on file Last Filed Vital Signs Vital Sign Reading Time Taken Comments Blood Pressure 130/74 01/02/2024 11:22 AM CDT Pulse 80 06/03/2023 10:20 AM ADMINISTRATION PHYSICIAN Temperature 37.2 C (99 F) 12/01/2022 3:30 PM CDT Respiratory Rate 17 12/01/2022 3:30 PM CDT Oxygen Saturation 93% 06/03/2023 10:20 AM ADMINISTRATION PHYSICIAN Inhaled Oxygen Concentration - - Weight 95.3 kg (210 lb) 01/02/2024 11:22 AM CDT Height 167.6 cm (5' 6 ) 01/02/2024 11:22 AM CDT Body Mass Index 33.89 01/02/2024 11:22 AM CDT Plan of Treatment Health Maintenance Due Date Last Done Comments DIABETES ANNUAL FOOT EXAM 1961 DIABETES ANNUAL RETINAL EXAM 1961 DIABETES MICROALBUMIN ANNUAL SCREEN 1961 LDL CHOLESTEROL ANNUAL 1961 DTAP/TDAP/TD VACCINES (1 - Tdap) 1962 PNEUMOCOCCAL VACCINE 50+ YEARS (1 of 2 - PCV) 07/26/18 63 ZOSTER VACCINE (1 of 2) 1993 RSV VACCINE (60+ or ) (1 - 1-dose 75+ series) 2018 DIABETES HBA1C Q 6 MONTHS 05/08/2023 11/05/2022 INFLUENZA VACCINE (#1) 2025 Medical Devices Implanted Type Area [employer] Worker Device Identifier Shelf Expiration Date Model / Serial / Lot Hemostatic Surgifoam 1gm 1977 - [id number] Implanted:Qty : 1 on 11/29/2022 by Peter Marcelino MD at [facility] Hemostatic N/A: Spine Lumbar [employer] [id number] 04/30/20241977 / [id number] Bill Cdh Ti Cp4 5.5x40mm Crvd [id number] - [id number] Implanted:Qty : 2 on 11/29/2022 by Peter Marcelino MD at [facility] Bill N/A: Spine Lumbar [employer] SOFAMOR DANEK [id number] / / Description:Tray# [id number] Screw Cdh 6.5x50mm 5.5/6.0 Mas Cc [id number] - [id number] Implanted:Qty : 2 on 11/29/2022 by Peter Marcelino MD at [facility] Screw N/A: Spine Lumbar [employer] [id number] / / Description:Tray# [id number] Screw Cdh 5.5x55mm 5.5/6.0 Mas Cc [id number] - [id number] Implanted:Qty : 1 on 11/29/2022 by Peter Marcelino MD at [facility] Screw N/A: Spine Lumbar [employer]AM[employer] [id number] / / Description:Tray# [id number] Screw Solera 5.5/6.0 Breakoff [id number] - [id number] Implanted:Qty : 4 on 11/29/2022 by ePter Marcelino MD at [facility] Screw N/A: Spine Lumbar [employer]AM[employer]ANEK [id number] / / Description:Tray# [id number] Allograft Magnifuse Dbm Mag 1x10cm [id number] - [id number] Implanted:Qty : 1 on 11/29/2022 by Peter Marcelino MD at [facility] Tissue N/A: Spine Lumbar [employer]K 09/30/2024 [id number] / [id number] / Explanted Type Area Railroad Yard Worker Device Identifier Shelf Expiration Date Model / Serial / Lot Screw Cdh 6.5x55mm 5.5/6.0 Mas Cc [id number] - [id number] Explanted:Qty: 2 on 11/29/[address] [facility] Screw N/A: Spine Lumbar [employer] [id number] / / Description:Tray# [id number] Procedures Procedure Name Priority Date/Time Associated Diagnosis Comments HEMOGLOBIN A1C Routine 11/05/2022 11:31 AM CDT from Last 3 Months or Most Recently Relevant to Health Maintenance Results * (ABNORMAL) HEMOGLOBIN A1C (11/05/2022 11:31 AM CDT) HEMOGLOBIN A1C 8.5(H) <=5.6 % 11/05/2022 12:07 PM CDT [facility] EST. AVG GLUCOSE, A1C 197 mg/dL 11/05/2022 12:07 PM CDT [facility] Blood Venipuncture / Unknown 11/05/2022 11:31 AM CDT 11/05/2022 11:38 AM CDT Narrative [facility] - 11/05/2022 12:07 PM CDT HGB A1C INTERPRETATION NORMAL: <5.7% PRE-DIABETES: 5.7 - 6.4% DIABETES: 6.5% OR GREATER us Surinder Magallon MD CHEMISTRY ORDERABLES Final Resu lt [facility] CLIA #[id number] [address] [place] [address] from Last 3 Months or Most Recently Relevant to Health Maintenance Insurance MEDICARE PART A AND B MEDICAID [place] [employer] RX Member Subscriber Plan / Payer (Ef fective 2022-Present) Name:Veronique Cao Myriam Relation to Subscriber:Self Name:Veronique Cao Payer ID:Not on file Group ID:[id number] Type:RX Commercial Address: [place], [place] RX INFOCROSSING Medicaid Advance Directives For more information, please contact: [phone] * Full Code (Latest Code Status on File) Date Activated Date Inactivated Comments 11/29/2022 6:08 PM 12/01/2022 8:54 PM Care Teams Command And Control Relationship Specialty Start Date End Date Alfredito Chandra DO [address] [place] [id number] PCP - General Family Practice 09/01/19
--- OUTSIDE RECORDS SUMMARY | 2025-03-09 10:49 | XMS_ITS | Clinical Summary ---
Author Organization [facility] Address [address] [place] [address] Phone Care Team Providers Care Salicylic Acid Blender Name Role Phone Alfredito Chandra DO Primary Care Provider [phone] Allergies No known active allergies Medications atorvastatin (LIPITOR) 20 mg tablet Take 20 mg by mouth daily with supper. Active finasteride (PROSCAR) 5 mg tablet Take 5 mg by mouth daily. Active warfarin (COUMADIN) 4 mg tablet Take 4 mg by mouth daily. Active cloNIDine HCL (CATAPRES) 0.1 mg tablet Take 0.1 mg by mouth 3 times daily. Active losartan (COZAAR) 100 mg tablet Take 100 mg by mouth daily. Active metFORMIN (GLUCOPHAGE) 1,000 mg tablet Take 1,000 mg by mouth 2 times daily with meals. Active amLODIPine (NORVASC) 10 mg tablet Take 10 mg by mouth daily. Active atenoloL (TENORMIN) 50 mg tablet Take 50 mg by mouth daily. Active insulin NPH-regular (HUMULIN 70-30,NOVOLIN 70-30) 100 unit/mL (70-30) injection Inject by subcutaneous injection. Active sertraline (ZOLOFT) 50 mg tablet TAKE 1 TABLET BY MOUTH ONCE DAILY 0 Active Active Problems Problem Noted Date Diagnosed Date Sacroiliac joint pain 02/16/2020 Sacroiliac joint somatic dysfunction 02/16/2020 DDD (degenerative disc disease), lumbar 02/16/20 20 DDD (degenerative disc disease), lumbosacral Lumbar facet arthropathy 02/16/2020 Social History Tobacco Use Types Packs/Day Years Used Date Smoking Tobacco: Never Smokeless Tobacco: Never Sex and Gender Information Value Date Recorded Sex Assigned at Not on file Legal Sex Male 1:36 PM CDT Gender Identity Not on file Sexual Orientation Not on file Last Filed Vital Signs Vital Sign Reading Time Taken Comments Blood Pressure 124/73 05/01/2020 3:08 PM HOUSEFELLOW Pulse 67 05/01/2020 3:08 PM HOUSEFELLOW Temperature 36.2 C (97.2 F) 05/01/2020 2:24 PM HOUSEFELLOW Respiratory Rate 16 05/01/2020 3:08 PM HOUSEFELLOW Oxygen Saturation 93% 05/01/2020 3:08 PM HOUSEFELLOW Inhaled Oxygen Concentration - - Weight 99.8 kg (220 lb) 05/01/2020 2:24 PM HOUSEFELLOW Height 167.6 cm (5' 6 ) 05/01/2020 2:24 PM HOUSEFELLOW Body Mass Index 35.51 05/01/2020 2:24 PM HOUSEFELLOW Plan of Treatment Health Maintenance Due Date Last Done Comments DTAP/TDAP/TD VACCINES (1 - Tdap) 1962 PNEUMOCOCCAL VACCINE 50+ YEARS (1 of 1 - PCV) 07/26/18 94 ZOSTER VACCINE (1 of 2) 1993 RSV VACCINE (60+ or ) (1 - 1-dose 75+ series) 2018 INFLUENZA VACCINE (#1) [address] [place] [id number] MEDICARE PART A AND B Care Teams Salicylic Acid Blender Relationship Specialty Start Date End Date Alfredito Chandra DO [address] [place] [address] PCP - General Family Practice 09/01/19
[2025-03-09 10:51] VITALS: BP 109/67; PULSE 85; TEMP 36.8; O2SAT 97; BMI 32.3
--- NOTE | 2025-03-09 12:53 | USCV_ITS ---
Veronique Cavazos Age: 79 Gender: M : 1945 Exam Date: 03/09/2025 13:09 Ordering Phys: Lalo Rascon MD Technologist: JAVIER Exam Location: [facility] Indication: RLE Pain. HISTORY: Lower extremity pain. PROCEDURES: Venous duplex imaging was performed in only the right lower extremity. The following venous structures were evaluated: common femoral vein, profunda vein, proximal portion of the greater saphenous vein, superficial femoral vein, and the popliteal vein. In addition, the posterior tibial and peroneal trunk were evaluated. Serial compression, augmentation maneuvers, and spectral Doppler flow evaluation were performed. FINDINGS: Chronic non occlusive popliteal DVT with adjacent thickened valve. No Acute DVT. 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 Dr. Inga Ayoub DO (Electronically Signed) Final Date: 09 March 2025 13:27 S
[2025-03-09 13:24] LABS: Hematocrit 51.0 % (37-53); Hemoglobin 16.20 g/dL (11.27-16.99); Mean Corpuscular HGB Conc 31.8 g/dL (30-55); Mean Corpuscular Hemoglobin 26.4 pg (27-33); Mean Corpuscular Volume 83.1 fl (82-101); Nucleated Red Blood Cells % 0 %; Platelet Count 161 10^3/cmm (157-399); Red Blood Count 6.14 10^6/uL (3.85-5.65); White Blood Count 11.76 10^3/uL (3.29-11.43)
[2025-03-09 13:40] LABS: INR 1.01 (0.8-1.2); Partial Thromboplastin Time 28.8 SECONDS (23.9-36.7); Prothrombin Time 14.00 SECONDS (12.1-14.9)
[2025-03-09 13:44] LABS: Anion Gap 15.4 (5-19); Blood Urea Nitrogen 16 mg/dL (8-23); Calcium 9.6 mg/dL (8.5-10.5); Carbon Dioxide 25 mmol/L (22-29); Chloride 103 mmol/L (98-107); Creatinine Clr Calc Pharmacy 47.0028; Glucose 159 mg/dL (65-115); Osmolality Calculated 293 mOsm/kg (285-295); Potassium 4.4 mmol/L (3.5-5.1); Sodium 139 mmol/L (136-145)
--- NOTE | 2025-03-09 13:53 | ED_ITS ---
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 Related Data Home Medications ?Medication ?Instructions ?Recorded ?Confirmed cholecalciferol (vitamin D3) 25 25 mcg PO DAILY 03/09/25 mcg (1,000 unit) capsule vitamin B12 500 mcg-folic acid 400 1 tab PO DAILY 04/2503/09/25 mcg tablet Previous Rx's ?Medication ?Instructions ?Recorded pen needle, diabetic 32 gauge x #100 ea 05/22/21 (BD Samara 2nd Gen Pen Needle) blood-glucose sensor (Dexcom G6 #3 ea 10/19/22 Sensor device) blood-glucose transmitter (Dexcom #1 ea 10/19/22 G6 Transmitter device) blood-glucose,wet char conveyor tender,cont #1 ea 10/19/22 (Dexcom G6 Firmware Architect) oxycodone 10 mg tablet 10 mg PO TID PRN pain 20 day s #60 10/09/23 tabs furosemide 20 mg tablet 20 mg PO DAILY edema #90 tab s 04/28/24 atorvastatin 20 mg tablet 20 mg PO BEDTIME #90 tabs pregabalin 75 mg capsule 75 mg PO BID #180 caps 08/06 insulin aspar prot-insulin aspart See Rx Instructions SUBCUT BID #15 09/17/24 100 unit/mL (70-30) subcutaneous mL pen (Novolog Mix 70-30FlexPen U-100) semaglutide 1 mg/dose (4 mg/3 mL) 1 mg (0.75 mL) SUBCU T .weekly DM 09/27/24 subcutaneous pen injector #3 mL sertraline 100 mg tablet 100 mg PO DAILY #90 tabs 01/14 amlodipine 10 mg tablet 10 mg PO DAILY #90 tabs 10/15 losartan 100 mg tablet See Rx Instructions .Route 0 01/24/25 .COMPLEX #90 tabs finasteride 5 mg tablet See Rx Instructions .Route 0 02/03/25 .COMPLEX #90 tabs Allergies Allergy/AdvReac Type Severity Reaction Status Date / Time No Known Allergies Allergy Verified 03/09/25 10:56 PFSH ED 2 PFSH: Medical History Enrolled in chronic care management please do not remove from active Chronic kidney disease Atrial fibrillation with slow ventricular response HLD (hyperlipidemia) Type 2 diabetes mellitus Hypertension H/O blood clots Acute biliary pancreatitis Pseudocyst of pancreas Surgical History History of cholecystectomy Family History Father Cancer Mother Pneumonia Sister Aneurysm Brother AA (aortic aneurysm) Social History Smoking and tobacco/nicotine status: former use of tobacco/nicotine Alcohol intake: never Substance/Drug Use: never Physical Exam 2 Narrative: EXAM NARRATIVE: Gen: A&Ox4, no acute distress, nontoxic appearing HEENT: Normocephalic, atraumatic, no scleral icterus, external ears normal, moist mucous membranes Neck: Supple, full range of motion, no observable masses Lungs: No Respiratory distress, Lungs clear to auscultation bilaterally no rales, rhonchi, wheezing CV: Regular rate and rhythm, no murmur, no pitting edema to lower extremities bilaterally Abdomen: Soft, nondistended, nontender to palpation MSK: Right lower extremity has asymmetric coolness to the touch from approximately the mid calf to lower calf down to the foot, there is mild pallor, there is paresthesias with decreased but not absent sensation, there is intact toe motor function but somewhat reduced strength, on Doppler exam there is a weak monophasic DP signal and no PT signal, the contralateral left limb has strong biphasic DP signal and normal sensation normal strength and normal temperature Skin: No rashes, petechiae, lesions Neuro: Alert and oriented, no slurred speech, sensation and strength grossly intact all 4 extremities Psych: Appropriate for situation. Course 2 Reevaluation(s): Reevaluation #1: Patient reevaluated at time of transfer, air transport and route, patient requesting a sedative as he is scared of flying, ordered for 1 mg IV Ativan as needed prior to transfer, he is currently clinically stable and on heparin Time: 14:55 Consultations: Consultation #1: Spoke with [facility] vascular surgery Dr. Mo, he agrees with heparinization and ER to ER transfer. Subsequently spoke to ER attending who accepts patient for transfer Time: 14:15 Vital Signs: Vital signs: Vital Signs Temperature 98.2 F 03/09/25 10:51 Pulse Rate 79 03/09/25 15:01 Blood Pressure 126/100 03/09/25 15:01 Pulse Oximetry 99 03/09/25 15:01 Oxygen Delivery Me thod Room Air 03/09/25 10:51 MDM - Extremity (Nontraumatic) Medical Decision Making 79-year-old male history hypertension diabetes paroxysmal A-fib, chronic DVT, previously on warfarin for many years discontinued last month as it was not being monitored and he was asymptomatic from a lower extremity perspective presenting with acute onset of pain since Friday to the right lower extremity, on exam patient has signs and symptoms of acute on chronic critical limb ischemia, he has a obvious temperature differential with pain, paresthesias/decrease sensation as well as decreased strength, he has no PT signal and a weak DP signal which is asymmetric from the contralateral limb which appears warm and well-perfused, started on heparin, chronic DVT to the popliteal region noted on DVT study but appears incidental and not related to his current presentation, transfer to facility with vascular capabilities for intervention. Lab Data Labs showing mild leukocytosis, borderline creatinine 1.3, no anemia or thrombocytopenia, normal electrolytes, D-dimer elevated consistent with known thromboembolic disease 03/09/25 13:05 03/09/25 13:05 Laboratory Results WBC 11.76 10^3/uL (3.29-11.43) H 03/09/25 13:05 RBC 6.14 10^6/uL (3.85-5.65) H 03/09/25 13:05 Hgb 16.20 g/dL (11.27-16.99) 03/09/25 13:05 Hct 51.0 % (37-53) 03/09/25 13:05 MCV 83.1 fl (82-101) 03/09/25 13:05 MCH 26.4 pg (27-33) L 03/09/25 13:05 MCHC 31.8 g/dL (30-55) 03/09/25 13:05 RDW 15.0 % (12.1-15.1) 03/09/25 13:05 Plt Count 161 10^3/cmm (157-399) 03/09/25 13:05 MPV 11.6 fL (7.4-10.4) H 03/09/25 13:05 Neut % (Auto) 55.8 % 03/09/25 13:05 Lymph % (Auto) 35.8 % 03/09/25 13:05 [place] % (Auto) 6.5 % 03/09/25 13:05 Eos % (Auto) 1.2 % 03/09/25 13:05 Baso % (Auto) 0.4 % 03/09/25 13:05 Neut # (Auto) 6.56 10^3/uL (1.8-7.7) 03/09/25 13:05 Lymph # (Auto) 4.2 10^3/uL (0.8-4.8) 03/09/25 13:05 [place] # (Auto) 0.8 10^3/uL (0.2-0.9) 03/09/25 13:05 Eos # (Auto) 0.1 10^3/uL (0.0-0.8) 03/09/25 13:05 Baso # (Auto) 0.1 10^3/uL (0.0-0.1) 03/09/25 13:05 Nucleated RBC % (auto) 0 % 03/09/25 13:05 Nucleated RBCs # 0.0 /100WBC 03/09/25 13:05 PT 14.00 SECONDS (12.1-14.9) 03/09/25 13:05 INR 1.01 (0.8-1.2) 03/09/25 13:05 APTT 28.8 SECONDS (23.9-36.7) 03/09/25 13:05 D-Dimer 0.94 ug/mLFEU (0-0.59) H 03/09/25 13:05 Sodium 139 mmol/L (136-145) 03/09/25 13:05 Potassium 4.4 mmol/L (3.5-5.1) 03/09/25 13:05 Chloride 103 mmol/L (98-107) 03/09/25 13:05 Carbon Dioxide 25 mmol/L (22-29) 03/09/25 13:05 Anion Gap 15.4 (5-19) 03/09/25 13:05 BUN 16 mg/dL (8-23) 03/09/25 13:05 Creatinine 1.3 mg/dL (0.7-1.2) H 03/09/25 13:05 GFR Calculation Not Reportable 03/09/25 13:05 Glucose 159 mg/dL (65-115) H 03/09/25 13:05 Calculated Osmolality 293 mOsm/kg (285-295) 03/09/25 13:05 Calcium 9.6 mg/dL (8.5-10.5) 03/09/25 13:05 All radiology interpretation(s) finalized by discharge ED provider radiology interpretation(s): Right lower extremity DVT showing chronic popliteal DVT EKG Data EKG 1: I personally reviewed and interpreted this EKG as follows: EKG interpretation date: 03/09/25 EKG interpretation time: 14:27 Interpretation: Atrial fibrillation at 94 bpm, nonspecific ST and T wave abnormality, no STEMI, QTc 387 ms, normal axis Critical Care Time 2 Critical Care Time: Critical Care Time: Yes Total Critical Care Time: 35 Attestation: This case had a high probability of a clinically significant, sudden, or life threatening deterioration of this patient's condition which required my full and direct attention, intervention and personal management. 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
--- NOTE | 2025-03-09 14:27 | ECG_ITS ---
[facility]: [facility]09 Pat Name: Veronique Cavazos Department: Room: Gender: Male Blood Bank Calendar Control Clerk: : 1945 Requested By: Lalo Rascon Order Number: [id number] Lesly MD: Shonda Camacho M.D. Measurements Intervals [place] Rate: 94 P: 0 ND: 0 QRS: 74 QRSD: 94 T: 29 QT: 336 QTc: 420 Interpretive Statements ATRIAL FIBRILLATION NONSPECIFIC ST & T-WAVE ABNORMALITY ABNORMAL RHYTHM ECG Compared to ECG 01/09/2022 12:42:08 T-wave abnormality now present ST (T wave) deviation no longer present Electronically Signed On 03-09-2025 23:29:02 CDT by Shonda Camacho M.D. [email or web address]
[2025-03-09] MEDS: heparin 5,000 unit/mL INJ 1 mL IVP (14:36)
[2025-03-09] MEDS: heparin drip 25,000 UNIT/500 ML PREMIX 26 UNIT IV (14:37)
[2025-03-09] MEDS: LORazepam 1 MG/0.5 ML injection IVP (15:00)
[2025-03-09 15:01] VITALS: BP 126/100; PULSE 79; O2SAT 99
[2025-03-09 15:24] VITALS: BP 126/100; PULSE 81; O2SAT 99
== END 2025-03-09 15:35 | disposition short-term general hospital (02) ==
PROVIDERS: Emergency Provider Student in an Organized Health Care Education/Training Program; PCP Family Medicine
DX: I82.532 Chronic embolism and thrombosis of left popliteal vein (principal); I99.8 Other disorder of circulatory system; Z87.891 Personal history of nicotine dependence; E78.5 Hyperlipidemia, unspecified; E11.22 Type 2 diabetes mellitus with diabetic chronic kidney disease; I12.9 Hypertensive chronic kidney disease with stage 1 through stage 4 chronic kidney disease, or unspecified chronic kidney disease; N18.9 Chronic kidney disease, unspecified
CPT/HCPCS: 36415; 80048; 85025; 85378; 85610; 85730; 93005; 93971; 96374; 96375; 99285; J1644; J2060

== ENCOUNTER 2025-03-11 17:01 | Emergency (ER) | payer MEDICARE, MEDICAID, SELFPAY ==
[2025-03-11 17:04] VITALS: BP 134/72; PULSE 91; RESP 18; TEMP 36.7; O2SAT 96
--- NOTE | 2025-03-11 17:06 | XRR_ITS ---
PROCEDURE INFORMATION: Exam: XR Chest Exam date and time: 03/11/2025 5:23 PM Age: 79 years old Clinical indication: Pain; Chest pressure; Additional info: Cp TECHNIQUE: Imaging protocol: Radiologic exam of the chest. Views: 1 view. COMPARISON: CR XR chest 1V portable [id number] 01/08/2022 4:55 PM FINDINGS: Lungs: Unremarkable. No consolidation. Pleural spaces: Unremarkable. No pleural effusion. No pneumothorax. Heart/Mediastinum: Unremarkable. No cardiomegaly. Bones/joints: Unremarkable. XR/XR chest 1V portable [id number] IMPRESSION: No acute findings.
--- OUTSIDE RECORDS SUMMARY | 2025-03-11 17:06 | XMS_ITS | Clinical Summary ---
Author Organization [facility] Facility Address [address] [place] [address] Care Team Providers Care Client Sales And Service Officer Name Role Phone Unavailable Primary Care Provider [...]
--- OUTSIDE RECORDS SUMMARY | 2025-03-11 17:06 | XMS_ITS | Clinical Summary ---
[facility] Organization [facility] Address [address] Naqvin: Epic Prelude ADT LINA CHRISTIANSON [address] Care Team Providers Care Gallery Intern Name Role Phone Alfredito Chandra DO Primary Care Provider [phone] Allergies No known active allergies Medications atorvastatin [...] disc disease), lumbosacral Sacroiliac joint pain 02/16/2020 Family History Medical History Relation Name Comments Heart Attack Brother 1 Bill Aortic aneurysm Brother 2 Aortic aneurysm Sister 1 Aortic aneurysm Sister 2 Relation Name Status Comments Brother 1 Bill Brother 2 Alive Sister 1 Alive Sister 2 Alive Social History Tobacco Use Types Packs/Day Years Used Date Smoking Tobacco: Former Cigarettes 1983 Smokeless Tobacco: Former Chew Quit: 1993 [...] on file Legal Sex Male 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 Gender Identity Not on file Sexual Orientation Not on file Last Filed Vital Signs Vital Sign Reading Time Taken Comments Blood Pressure 130/74 01/02/2024 11:22 AM CDT Pulse 80 06/03/2023 10:20 AM TRAVEL ACCOMMODATION INSPECTOR Temperature 37.2 C (99 F) 12/01/2022 3:30 PM CDT Respiratory Rate 17 12/01/2022 3:30 PM CDT Oxygen Saturation 93% 06/03/2023 10:20 AM TRAVEL ACCOMMODATION INSPECTOR Inhaled Oxygen Concentration - - Weight 95.3 [...] (#1) 2025 Medical Devices Implanted Type Area Junior Graphic Designer Device Identifier Shelf Expiration Date Model / Serial / Lot Hemostatic Surgifoam 1gm 1977 - [id number] Implanted:Qty : 1 on 11/29/2022 by Peter Marcelino MD at [facility] Hemostatic N/A: Spine Lumbar [employer] [id number] 04/30/20241977 / / [id number] Bill Cdh Ti Cp4 5.5x40mm Crvd [id number] - [id number] Implanted:Qty : 2 on 11/29/2022 by Peter Marcelino MD at [facility] Bill N/A: Spine Lumbar [employer]- SOFAMOR DANEK [id number] / / Description:Tray# [id number] Screw Cdh 6.5x50mm 5.5/6.0 Mas Cc [id number] - [id number] Implanted:Qty : 2 on 11/29/2022 by Peter Marcelino MD at [facility] Screw N/A: Spine Lumbar [employer] SOFAMOR DANEK [id number] / / Description:Tray# [id number] Screw Cdh 5.5x55mm 5.5/6.0 Mas Cc [id number] - [id number] Implanted:Qty : 1 on 11/29/2022 by Peter Marcelino MD at [facility] Screw N/A: Spine Lumbar [employer]- SOFAMOR DANEK [id number] / / Description:Tray# [id number] Screw Solera 5.5/6.0 Breakoff [id number] - [id number] Implanted:Qty : 4 on 11/29/2022 by Peter Marcelino MD at [facility] Screw N/A: Spine Lumbar [employer] SOFAMOR DANEK [id number] / / Description:Tray# [id number] Allograft Magnifuse Dbm Mag 1x10cm [id number] - [id number] Implanted:Qty : 1 on 11/29/2022 by Peter Marcelino MD at [facility] Tissue N/A: Spine Lumbar [employer] SOFAMOR DANEK 09/30/2024 [id number] / [id number] / Explanted Type Area Junior Graphic Designer Device Identifier Shelf Expiration Date Model / Serial / Lot Screw Cdh 6.5x55mm 5.5/6.0 Mas Cc [id number] - [id number] Explanted:Qty: 2 on 11/29/[address] [facility] Screw N/A: Spine Lumbar [employer] SOFAM[employer] DANEK [id number] / / Description:Eldon# [id number] Procedures Procedure Name Priority Date/Time Associated Diagnosis Comments HEMOGLOBIN A1C Routine 11/05/2022 11:31 AM CDT from Last 3 Months or Most Recently Relevant to Health Maintenance Results * (ABNORMAL) HEMOGLOBIN A1C (11/05/2022 11:31 AM CDT) HEMOGLOBIN A1C 8.5(H) <=5.6 % 11/05/2022 12:07 PM CDT [facility] EST. AVG GLUCOSE, A1C 197 mg/dL 11/05/2022 12:07 PM CDT [facility] Blood Venipuncture / Unknown 11/05/2022 11:31 AM CDT 11/05/2022 11:38 AM CDT Narrative [facility] - 11/05/2022 12:07 PM CDT HGB A1C INTERPRETATION NORMAL: <5.7% PRE-DIABETES: 5.7 - 6.4% DIABETES: 6.5% OR GREATER us Surinder Magallon MD CHEMISTRY ORDERABLES Final Resu lt [facility] CLIA #[id number] [address] [place] [address] from Last 3 Months or Most Recently Relevant to Health Maintenance Insurance MEDICARE PART A AND B MEDICAID [place] [employer] RX Member Subscriber Plan / Payer (Ef fective 2022-Present) Name:Veronique Cao Relation to Subscriber:Self Name:Veronique Cao Payer ID:Not on file Group ID:[id number] Type:RX Commercial Address: [place], [place] RX INFOCROSSING Medicaid Advance Directives For more information, please contact: [phone] * Full Code (Latest Code Status on File) Date Activated Date Inactivated Comments 11/29/2022 6:08 PM 12/01/2022 8:54 PM Care Teams Gallery Intern Relationship Specialty Start Date End Date Alfredito Chandra DO [address] [place] [id number] PCP - General Family Practice 09/01/19
--- OUTSIDE RECORDS SUMMARY | 2025-03-11 17:06 | XMS_ITS | Encounter Summary ---
Author Organization [facility] Address [address] [facility] [address] [place] [address] Phone Care Team Providers Care Chief Fundraising Officer Name Role Phone Unavailable Primary Care Provider Unavailabl e Encounter Details Date Type Department Care Team (Late st Contact Info) Description 12/28/2020 [facility] [address] [facility] [address] [place] [address] Acute kidney failure, not otherwise [...]
--- OUTSIDE RECORDS SUMMARY | 2025-03-11 17:06 | XMS_ITS | Encounter Summary ---
Author Organization [facility] Address [address] [place] [address] Care Team Providers Care Crane Service Technician Name Role Phone Alfredito Chandra DO Primary Care Provider Encounter Details Date Type Department Care Team (Late st Contact Info) Description 11/16/2019 Ancillary Orders [facility] Orthopedics - Orthopedic [facility] [address] [place] [address] [facility], External Provider [address] [place] [address] Pain Social History Tobacco Use [...] * XR PRIOR STUDY (08/18/2019 12:00 PM TREE DOCTOR) Narrative 11/16/2019 12:43 PM CDT This exam was auto finalized to allow images to be scanned to PACS. us External Provider [facility] DIAGNOSTIC IMAGING ORDERAB LES Final Result * XR PRIOR STUDY (07/02/2019 12:00 PM TREE DOCTOR) Narrative 11/16/2019 12:44 PM CDT This exam was auto finalized to allow images to be scanned to PACS. us External Provider [facility] DIAGNOSTIC IMAGING ORDERAB LES Final Result documented in this encounter Visit Diagnoses Diagnosis Pain Generalized pain Pain Generalized pain Pain Generalized pain documented in this encounter Care Teams Crane Service Technician Relationship Specialty Start Date End Date Alfredito Chandra DO [address] [place] [address] PCP - General Family Practice 09/01/19 documented as of this encounter
--- OUTSIDE RECORDS SUMMARY | 2025-03-11 17:06 | XMS_ITS | Clinical Summary ---
Author Organization [facility] Address [address] [place] [address] Phone Care Team Providers Care Water Well Driller Name Role Phone Alfredito Chandra DO Primary Care Provider [phone] Allergies No known active allergies Medications atorvastatin [...] Comments Blood Pressure 124/73 05/01/2020 3:08 PM HEAD WAITER/WAITRESS BANQUET Pulse 67 05/01/2020 3:08 PM HEAD WAITER/WAITRESS BANQUET Temperature 36.2 C (97.2 F) 05/01/2020 2:24 PM HEAD WAITER/WAITRESS BANQUET Respiratory Rate 16 05/01/2020 3:08 PM HEAD WAITER/WAITRESS BANQUET Oxygen Saturation 93% 05/01/2020 3:08 PM HEAD WAITER/WAITRESS BANQUET Inhaled Oxygen Concentration - - Weight 99.8 kg (220 lb) 05/01/2020 2:24 PM HEAD WAITER/WAITRESS BANQUET Height 167.6 cm (5' 6 ) 05/01/2020 2:24 PM HEAD WAITER/WAITRESS BANQUET Body Mass Index 35.51 05/01/2020 2:24 PM HEAD WAITER/WAITRESS BANQUET Plan of Treatment Health Maintenance Due Date Last Done Comments DTAP/TDAP/TD VACCINES (1 - Tdap) 1962 PNEUMOCOCCAL VACCINE 50+ YEARS (1 of 1 - PCV) 07/26/18 94 ZOSTER VACCINE (1 of 2) 1993 RSV VACCINE (60+ or ) (1 - 1-dose 75+ series) 2018 INFLUENZA VACCINE (#1) [address] [place] [address] MEDICARE PART A AND B Care Teams Water Well Driller Relationship Specialty Start Date End Date Alfredito Chandra DO [address] [place] [address] PCP - General Family Practice 09/01/19
[2025-03-11 17:32] LABS: Hematocrit 49.6 % (37-53); Hemoglobin 16.20 g/dL (11.27-16.99); Mean Corpuscular HGB Conc 32.7 g/dL (30-55); Mean Corpuscular Hemoglobin 26.8 pg (27-33); Mean Corpuscular Volume 82.0 fl (82-101); Nucleated Red Blood Cells % 0 %; Platelet Count 168 10^3/cmm (157-399); Red Blood Count 6.05 10^6/uL (3.85-5.65); White Blood Count 13.89 10^3/uL (3.29-11.43)
--- NOTE | 2025-03-11 17:34 | ECG_ITS ---
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 Measurements Intervals [place] Rate: 94 P: 0 AK: 0 QRS: 45 QRSD: 94 T: 89 QT: 343 QTc: 431 Interpretive Statements ATRIAL FIBRILLATION NONSPECIFIC ST & T-WAVE ABNORMALITY Compared to ECG 03/09/2025 14:27:40 No significant changes Electronically Signed On 03-12-2025 13:04:30 CDT by Elías Gutierrez M.D. [email or web address]
--- NOTE | 2025-03-11 17:52 | W.ED.GENADLT ---
HPI - General Adult General: Chief complaint: Headache Stated complaint: N/V Headache Time Seen by Provider: 03/11/25 17:16 History of Present Illness: 79-year-old gentleman that was at [facility] and discharged today after peripheral PTCA for ischemic right limb and peripheral stent x 1 presented to the ED with nausea, vomiting, headache. This occurred as he was getting in the car and leaving [facility]. He thought initially this was due to wrestling around and leaving the hospital. Patient notes they were able to place 1 peripheral stent, however the other 1 was unable to be placed. He does have flow/circulation restored to his right lower extremity however. He has not had any chest discomfort. He does have dysuria, however this has been waxing and waning symptoms, slightly worse lately. History of BPH. History of atrial fibrillation, permanent. Associated symptoms: Reports nausea and vomiting; Deny chest pain, dyspnea, rash or palpitations Related Data Home Medications ?Medication ?Instructions ?Recorded ?Confirmed cholecalciferol (vitamin D3) 25 25 mcg PO DAILY 05/22/21 03/09/25 mcg (1,000 unit) capsule vitamin B12 500 mcg-folic acid 400 1 tab PO DAILY 05/22/21 03/09/25 mcg tablet Previous Rx's ?Medication ?Instructions ?Recorded pen needle, diabetic 32 gauge x #100 ea 05/22/21 (BD Samara 2nd Gen Pen Needle) blood-glucose sensor (Dexcom G6 #3 ea 10/19/22 Sensor device) blood-glucose transmitter (Dexcom #1 ea 10/19/22 G6 Transmitter device) blood-glucose,oracle technical architect,cont #1 ea 10/19/22 (Dexcom G6 Parts Advisor) oxycodone 10 mg tablet 10 mg PO TID PRN pain 20 days #60 10/09/23 tabs furosemide 20 mg tablet 20 mg PO DAILY edema #90 tabs 04/28/24 atorvastatin 20 mg tablet 20 mg PO BEDTIME #90 tabs 08/06/24 pregabalin 75 mg capsule 75 mg PO BID #180 caps 08/06/24 insulin aspar prot-insulin aspart See Rx Instructions SUBCUT BID #15 09/17/24 100 unit/mL (70-30) subcutaneous mL pen (Novolog Mix 70-30FlexPen U-100) semaglutide 1 mg/dose (4 mg/3 mL) 1 mg (0.75 mL) SUBCUT .weekly DM 09/27/24 subcutaneous pen injector #3 mL sertraline 100 mg tablet 100 mg PO DAILY #90 tabs 12/27/24 amlodipine 10 mg tablet 10 mg PO DAILY #90 tabs 01/24/25 losartan 100 mg tablet See Rx Instructions .Route 01/24/25 .COMPLEX #90 tabs finasteride 5 mg tablet See Rx Instructions .Route 02/03/25 .COMPLEX #90 tabs gabapentin 300 mg capsule 300 mg PO BEDTIME #30 caps 03/11/25 ondansetron 4 mg disintegrating 4 mg PO Q8H PRN nausea and 03/11/25 tablet vomiting 4 days #14 tabs Allergies Allergy/AdvReac Type Severity Reaction Status Date / Time No Known Allergies Allergy Verified 03/11/25 17:12 Review of Systems General: Reports: 10 or more systems reviewed and unremarkable except in HPI and below Const: Denies: fever(s) or chills ENMT: Denies: throat pain or mouth pain Card: Denies: chest pain or palpitations Resp: Denies: dyspnea or productive cough GI: Reports: nausea and vomiting; Denies: abdominal pain : Reports: difficulty urinating ( correct x 15 years); Denies: flank pain Musc: Reports: extremity pain (Right big toe after revascularization); Denies: neck pain or joint stiffness Skin/Breast: Denies: rash or pruritus PFSH ED PFSH: Medical History (Updated 03/11/25 @ 19:49 by CAROL Tam) Enrolled in chronic care management please do not remove from active Chronic kidney disease Atrial fibrillation with slow ventricular response HLD (hyperlipidemia) Type 2 diabetes mellitus Hypertension H/O blood clots Acute biliary pancreatitis Pseudocyst of pancreas Surgical History History of cholecystectomy Family History Father Cancer Mother Pneumonia Sister Aneurysm Brother AA (aortic aneurysm) Social History Smoking and tobacco/nicotine status: former use of tobacco/nicotine Alcohol intake: never Substance/Drug Use: never Physical Exam Const: COMMON NORMALS: patient oriented x3 HENMT: COMMON NORMALS: normocephalic and atraumatic HEAD & SCALP: normocephalic and atraumatic Lymph: LYMPHATIC: no lymphadenopathy noted Chest: COMMONS NORMALS: normal inspection of the chest Resp: COMMON NORMALS: normal respiratory effort, No retractions and clear to auscultation bilaterally AUSCULTATION: clear to auscultation bilaterally Cardio: COMMON NORMALS: regular rate and regular rhythm RATE: regular rate RHYTHM: regular rhythm GI: COMMON NORMALS: Normal to inspection, nondistended, normoactive bowel sounds present, Soft to palpation and non-tender PALPATION: Yes Soft to palpation : COMMON NORMALS: Yes no CVA tenderness BLADDER/KIDNEY EXAM: Yes no CVA tenderness Back/Pelvis: COMMON NORMALS: no CVA tenderness Extremity: COMMON NORMALS: normal to inspection, full ROM and capillary refill normal NARRATIVE EXTREMITY EXAM: Pedal pulses are +2 bilateral GENERAL: Yes normal exam except as noted Neuro: COMMON NORMALS: patient oriented x3 and CN's II-XII intact bilaterally Psych: COMMON NORMALS: mental status grossly normal, Normal thought process present and cooperative THOUGHT PROCESS: Normal thought process present Course Vital Signs: Vital signs: Vital Signs Temperature 98.1 F 03/11/25 17:04 Pulse Rate 82 03/11/25 20:15 Respiratory Rate 16 03/11/25 20:15 Blood Pressure 131/79 03/11/25 20:15 Pulse Oximetry 96 03/11/25 20:15 Oxygen Delivery Me thod Room Air 03/11/25 17:04 [facility] - General Adult Medical Decision Making Patient is 79-year-old gentleman that was just discharged from [facility] after revascularization of his right leg. He nearly immediately had nausea, and vomiting. This continued after leaving. The daughters called [facility] that recommended he go to the ER. On workup here, he is improved after IV fluids, and antiemetic. No additional findings were of concern. He did have right toe pain after revascularization, which is somewhat common. His pedal pulses are present. Gabapentin given x 1, and sent to the pharmacy. He will follow-up with vascularization and follow the directions. Medical Records I reviewed the patient's medical records. Lab Data I reviewed the patient's lab results. 03/11/25 17:20 03/11/25 17:20 Radiology Impressions Chest X-Ray 03/11/25 17:06 IMPRESSION: No acute findings. Laboratory Results WBC 13.89 10^3/uL (3.29-11.43) H 03/11/25 17:20 RBC 6.05 10^6/uL (3.85-5.65) H 03/11/25 17:20 Hgb 16.20 g/dL (11.27-16.99) 03/11/25 17:20 Hct 49.6 % (37-53) 03/11/25 17:20 MCV 82.0 fl (82-101) 03/11/25 17:20 MCH 26.8 pg (27-33) L 03/11/25 17:20 MCHC 32.7 g/dL (30-55) 03/11/25 17:20 RDW 14.9 % (12.1-15.1) 03/11/25 17:20 Plt Count 168 10^3/cmm (157-399) 03/11/25 17:20 MPV 11.4 fL (7.4-10.4) H 03/11/25 17:20 Neut % (Auto) 65.1 % 03/11/25 17:20 Lymph % (Auto) 26.3 % 03/11/25 17:20 [place] % (Auto) 7.6 % 03/11/25 17:20 Eos % (Auto) 0.2 % 03/11/25 17:20 Baso % (Auto) 0.4 % 03/11/25 17:20 Neut # (Auto) 9.03 10^3/uL (1.8-7.7) H 03/11/25 17:20 Lymph # (Auto) 3.7 10^3/uL (0.8-4.8) 03/11/25 17:20 [place] # (Auto) 1.1 10^3/uL (0.2-0.9) H 03/11/25 17:20 Eos # (Auto) 0.0 10^3/uL (0.0-0.8) 03/11/25 17:20 Baso # (Auto) 0.1 10^3/uL (0.0-0.1) 03/11/25 17:20 Nucleated RBC % (auto) 0 % 03/11/25 17:20 Nucleated RBCs # 0.0 /100WBC 03/11/25 17:20 Sodium 135 mmol/L (136-145) L 03/11/25 17:20 Potassium 4.3 mmol/L (3.5-5.1) 03/11/25 17:20 Chloride 100 mmol/L (98-107) 03/11/25 17:20 Carbon Dioxide 23 mmol/L (22-29) 03/11/25 17:20 Anion Gap 16.3 (5-19) 03/11/25 17:20 BUN 19 mg/dL (8-23) 03/11/25 17:20 Creatinine 1.4 mg/dL (0.7-1.2) H 03/11/25 17:20 GFR Calculation Not Reportable 03/11/25 17:20 Glucose 139 mg/dL (65-115) H 03/11/25 17:20 Calculated Osmolality 285 mOsm/kg (285-295) 03/11/25 17:20 Calcium 9.4 mg/dL (8.5-10.5) 03/11/25 17:20 Total Bilirubin 2.3 mg/dL (0.15-1.2) H 03/11/25 17:20 AST 58 U/L (0-40) H 03/11/25 17:20 ALT 31 U/L (0-41) 03/11/25 17:20 Alkaline Phosphatase 96 U/L (40-130) 03/11/25 17:20 Total Protein 6.4 g/dL (6.6-8.7) L 03/11/25 17:20 Albumin 3.8 g/dL (3.5-5.2) 03/11/25 17:20 Globulin 2.6 g/dL (1.3-4.6) 03/11/25 17:20 Lipase 9 U/L (13-60) L 03/11/25 17:20 Urine Color Dark yellow (Yellow) A 03/11/25 18:18 Urine Appearance Clear (CLEAR) 03/11/25 18:18 Urine pH 5.5 (5-7) 03/11/25 18:18 Ur Specific [place] 1.032 (1.005-1.030) H 03/11/25 18:18 Urine Protein 1+ (Negative) A 03/11/25 18:18 Urine Glucose (UA) Negative (Normal) 03/11/25 18:18 Urine Ketones Trace (Negative) 03/11/25 18:18 Urine Blood Trace (Negative) A 03/11/25 18:18 Urine Nitrate Negative (Negative) 03/11/25 18:18 Urine Bilirubin Negative (Negative) 03/11/25 18:18 Urine Urobilinogen 2.0 mg/dL (Negative) H 03/11/25 18:18 Ur Leukocyte Esterase Trace (Negative) A 03/11/25 18:18 Urine RBC 0-2 /hpf (0-2) 03/11/25 18:18 Urine WBC 0-5 /hpf (0-5) 03/11/25 18:18 Ur Squamous Epith Cells 0-5 /hpf (0-5) 03/11/25 18:18 Amorphous Sediment Not Reportable 03/11/25 18:18 Urine Bacteria None seen /hpf (NONE) 03/11/25 18:18 Hyaline Casts 0.81 /lpf 03/11/25 18:18 No radiology studies performed this visit EKG Data EKG 1: Interpretation: afib rate 94, qtc 395, no st elevation, q waves III Computer generated interpretation: Chest X-Ray 03/11/25 17:06 IMPRESSION: No acute findings. Discharge Plan Discharge Patient Disposition: Home Clinical Impression: Gastroenteritis Condition: Stable Prescriptions: New gabapentin 300 mg capsule 300 mg PO BEDTIME Qty: 30 0RF ondansetron 4 mg tablet,disintegrating 4 mg PO Q8H PRN (Reason: nausea and vomiting) 4 Days Qty: 14 0RF No Action vitamin V74-catyq acid 500-400 mcg tablet 1 tab PO DAILY Rx Instructions: administer with a meal cholecalciferol (vitamin D3) 25 mcg (1,000 unit) capsule 25 mcg PO DAILY (DME) pen needle, diabetic [BD Samara 2nd Gen Pen Needle] 32 gauge x 5/32 needle See Rx Instructions .Route Qty: 100 3RF Rx Instructions: As directed (DME) Dexcom G6 Parts Advisor Misc See Rx Instructions .Route Qty: 1 0RF Rx Instructions: Check BS 4 -6 times a day. (DME) Dexcom G6 Sensor Device See Rx Instructions .Route Qty: 3 3RF Rx Instructions: Change every 10 days. (DME) Dexcom G6 Transmitter Device See Rx Instructions .Route Qty: 1 3RF Rx Instructions: Change every 90 days. oxycodone 10 mg tablet 10 mg PO TID PRN (Reason: pain) 20 Days Qty: 60 0RF furosemide 20 mg tablet 20 mg PO DAILY Qty: 90 3RF atorvastatin 20 mg tablet 20 mg PO BEDTIME Qty: 90 3RF pregabalin 75 mg capsule 75 mg PO BID Qty: 180 3RF insulin asp prt-insulin aspart [Novolog Mix 70-30FlexPen U-100] 100 unit/mL (70-30) insulin pen See Rx Instructions SUBCUT BID Qty: 15 12RF Rx Instructions: 50 units subcut qam and 30units subcut qpm subcutaneously semaglutide 1 mg/dose (4 mg/3 mL) pen injector 1 mg SUBCUT .weekly Qty: 3 5RF sertraline 100 mg tablet 100 mg PO DAILY Qty: 90 1RF amlodipine 10 mg tablet 10 mg PO DAILY Qty: 90 0RF losartan 100 mg tablet See Rx Instructions .ROUTE .COMPLEX Qty: 90 0RF Dose Instruction: TAKE 1 TABLET BY MOUTH ONCE DAILY FOR HIGH BLOOD PRESSURE Rx Instructions: TAKE 1 TABLET BY MOUTH ONCE DAILY FOR HIGH BLOOD PRESSURE finasteride 5 mg tablet See Rx Instructions .ROUTE .COMPLEX Qty: 90 0RF Dose Instruction: Take 1 tablet by mouth once daily Rx Instructions: Take 1 tablet by mouth once daily Discharge Orders: Discharge ED (Routine); Ordered 03/11/25 Ordered By: Jenny Boswell Referrals: Alfredito Chandra DO [Primary Care Provider, Family Practice] Discharge Diet: Clear Liquid and Full LIquid Patient Instructions: Full Liquid Diet, Clear Liquid Diet (ED), Acute Nausea and Vomiting (ED), Patient Portal & Дмитрий Instructions Activity Restrictions/Additional Instructions: - Follow-up with your doctor as directed and follow vascular's instructions -Clear liquid diet while you are nauseated or vomiting. -Gabapentin was sent to your pharmacy for your toe pain. Utilize just at night - Nausea medication called ondansetron was sent to your pharmacy. Use cautiously. Do not use more than 3/24 hours. - Return to the ED if you have worsening nausea, and vomiting, fever greater 100.4 ?F. Print Language: Macedonian Coding Level of Care Code ED Imaging Aide for Dipesh Robles
[2025-03-11 17:56] LABS: Alanine Aminotransferase 31 U/L (0-41); Albumin Level 3.8 g/dL (3.5-5.2); Alkaline Phosphatase 96 U/L (40-130); Anion Gap 16.3 (5-19); Aspartate Amino Transferase 58 U/L (0-40); Blood Urea Nitrogen 19 mg/dL (8-23); Calcium 9.4 mg/dL (8.5-10.5); Carbon Dioxide 23 mmol/L (22-29); Chloride 100 mmol/L (98-107); Creatinine Clr Calc Pharmacy 43.6455; Globulin 2.6 g/dL (1.3-4.6); Glucose 139 mg/dL (65-115); Lipase 9 U/L (13-60); Osmolality Calculated 285 mOsm/kg (285-295); Potassium 4.3 mmol/L (3.5-5.1); Sodium 135 mmol/L (136-145); Total Protein 6.4 g/dL (6.6-8.7)
[2025-03-11 18:28] LABS: Glucose Urine UA Negative (Normal); Nitrate Urine Negative (Negative)
[2025-03-11 18:32] LABS: Add Urine Microscopic? YES
[2025-03-11 18:46] VITALS: BP 142/68; PULSE 96; O2SAT 94
[2025-03-11] MEDS: ondansetron 2 mg/ML SDV 2 mL 4 MG IVP (18:57)
[2025-03-11 19:16] LABS: Specific Gravity, Urine 1.032 (1.005-1.030)
[2025-03-11 20:15] VITALS: BP 131/79; PULSE 82; RESP 16; O2SAT 96
== END 2025-03-11 20:16 | disposition home or self-care (01) ==
PROVIDERS: Emergency Medicine; Emergency Provider Physician Assistant; PCP Family Medicine
DX: K52.9 Noninfective gastroenteritis and colitis, unspecified (principal); Z79.4 Long term (current) use of insulin; Z87.891 Personal history of nicotine dependence; E78.5 Hyperlipidemia, unspecified; E11.22 Type 2 diabetes mellitus with diabetic chronic kidney disease; N18.9 Chronic kidney disease, unspecified
CPT/HCPCS: 36415; 71045; 80053; 81001; 83690; 85025; 93005; 96361; 96374; 99285; J2405; J7120; J9999

== ENCOUNTER 2025-05-20 10:46 | Outpatient (CLI) | payer MEDICARE, MEDICAID, OTHER, SELFPAY ==
[2025-05-20 11:57] LABS: Creatinine Urine, Random 128 mg/dL (39-259); Microalbum Creatinine Ratio Ur 8 mg/dL (0-20)
== END 2025-05-20 10:47 | disposition home or self-care (01) ==
LOC: LAB 10:49
PROVIDERS: PCP Family Medicine; Visit Provider Internal Medicine
DX: R80.9 Proteinuria, unspecified (principal)
CPT/HCPCS: 82044